=== PATIENT | male | born 1980 ===

== ENCOUNTER 2016-12-11 20:44 | Emergency (ER) | payer OTHER ==
[2016-12-11 20:45] VITALS: BMI 33.0
[2016-12-11 20:54] VITALS: BP 171/90; PULSE 95; RESP 18; TEMP 98.3; O2SAT 98
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
== END 2016-12-11 22:01 | disposition home or self-care (01) ==
LOC: ED 20:44
DX: R21 Rash and other nonspecific skin eruption (principal)

== ENCOUNTER 2016-12-20 12:32 | Emergency (ER) | payer OTHER ==
[2016-12-20 12:32] VITALS: BMI 33.0
[2016-12-20 12:56] VITALS: RESP 18; TEMP 97.7
[2016-12-20 13:05] LABS: ADD MANUAL DIFF? NO
[2016-12-20 13:09] LABS: URINE BILIRUBIN NEGATIVE (NEGATIVE); URINE BLOOD NEGATIVE (NEGATIVE); URINE GLUCOSE (UA) NEGATIVE (NEGATIVE); URINE KETONE NEGATIVE (NEGATIVE); URINE LEUKOCYTE ESTERASE NEGATIVE Leu/uL (NEGATIVE); URINE PROTEIN NEGATIVE mg/dL (<30 mg/dL); URINE UROBILINOGEN 0.2 E.U./dL (<1 E.U./dL)
[2016-12-20 13:10] LABS: URINE APPEARANCE CLEAR (CLEAR)
[2016-12-20 13:12] LABS: BASO # 0.02 K/mm3 (0.0-2.0); BASO % 0.4 % (0.0-3.0); EOS # 0.1 (0.0-0.7); EOS % 1.5 % (1.5-5.0); GRAN # 2.57 (1.4-6.5); GRAN % 48.1 % (50.0-68.0); HEMATOCRIT 39.1 % (42.0-52.0); LYMPH # 2.2 (1.2-3.4); LYMPH % 41.6 % (22.0-35.0); MEAN CELL VOLUME 91.1 fL (80.0-105.0); MEAN CORPUSCULAR HEMOGLOBIN 31.7 pg (25.0-35.0); MEAN CORPUSCULAR HGB CONC 34.8 g/dl (31.0-37.0); MEAN PLATELET VOLUME 10.6 fl (7.0-11.0); MONO # 0.5 (0.1-0.6); MONO % 8.4 % (1.0-6.0); PLATELET COUNT 190 10^3/uL (120.0-450.0); RED CELL DISTRIBUTION WIDTH 12.6 % (11.5-14.5); WHITE BLOOD COUNT 5.3 10^3/ul (4.5-11.0)
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
[2016-12-20 13:24] LABS: ALB/GLOB RATIO 1.1 (1.1-1.8); ALKALINE PHOSPHATASE 77 U/L (38-133); ALT/SGPT 42 U/L (7-56); AST/SGOT 24 U/L (15-59); BILIRUBIN,TOTAL 0.6 mg/dL (0.2-1.3); BLOOD UREA NITROGEN 16 mg/dL (7-21); CALCIUM 9.1 mg/dL (8.4-10.5); CARBON DIOXIDE 27 mmol/L (21-33); CHLORIDE 102 mmol/L (98-107); GFR AFRICAN-AMERICAN > 60; GLUCOSE,RANDOM 77 mg/dL (70-110); POTASSIUM 4.3 mmol/L (3.6-5.0); SODIUM 138 mmol/L (132-148); TOTAL PROTEIN 8.3 g/dL (5.8-8.3)
--- NOTE | 2016-12-20 13:46 | RAD ---
HISTORY: pes eval COMPARISON: Comparison made with chest radiograph 04/30/2016 FINDINGS: LUNGS: Poor inspiration with low lung volumes, mild crowded bronchovascular markings and mild bibasilar atelectasis PLEURA: No significant pleural effusion identified, no pneumothorax apparent. CARDIOVASCULAR: Heart size is borderline enlarged. OSSEOUS STRUCTURES: No significant abnormalities. VISUALIZED UPPER ABDOMEN: Normal. OTHER FINDINGS: None. IMPRESSION: Poor inspiration with low lung volumes, mild crowded bronchovascular markings and mild bibasilar atelectasis.
[2016-12-20 19:42] VITALS: BP 118/78; PULSE 68; O2SAT 100
--- NOTE | 2016-12-20 21:47 | CARD ---
APPROVED REPORT EKG Measurement Heart [id number] <Conclusion> Normal sinus rhythm Nonspecific T wave abnormality Abnormal ECG
== END 2016-12-20 19:10 | disposition home or self-care (01) ==
LOC: ED 12:32
DX: F25.9 Schizoaffective disorder, unspecified (principal); Z87.891 Personal history of nicotine dependence; E11.9 Type 2 diabetes mellitus without complications; I10 Essential (primary) hypertension

== ENCOUNTER 2016-12-22 11:16 | Inpatient (IN) | payer MEDICAID, OTHER ==
[2016-12-22 11:16] VITALS: BMI 33.0
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
[2016-12-22 14:04] LABS: ADD MANUAL DIFF? NO
[2016-12-22 14:11] LABS: BASO # 0.03 K/mm3 (0.0-2.0); BASO % 0.6 % (0.0-3.0); EOS % 0.8 % (1.5-5.0); GRAN # 2.71 (1.4-6.5); GRAN % 54.3 % (50.0-68.0); LYMPH # 1.8 (1.2-3.4); LYMPH % 35.1 % (22.0-35.0); MEAN CELL VOLUME 90.3 fL (80.0-105.0); MEAN CORPUSCULAR HEMOGLOBIN 31.4 pg (25.0-35.0); MEAN CORPUSCULAR HGB CONC 34.7 g/dl (31.0-37.0); MEAN PLATELET VOLUME 10.4 fl (7.0-11.0); MONO # 0.5 (0.1-0.6); MONO % 9.2 % (1.0-6.0); PLATELET COUNT 169 10^3/uL (120.0-450.0); RED CELL DISTRIBUTION WIDTH 12.6 % (11.5-14.5)
[2016-12-22 14:20] LABS: ALB/GLOB RATIO 1.1 (1.1-1.8); ALKALINE PHOSPHATASE 79 U/L (38-133); ALT/SGPT 59 U/L (7-56); AST/SGOT 27 U/L (15-59); BILIRUBIN,TOTAL 0.5 mg/dL (0.2-1.3); BLOOD UREA NITROGEN 13 mg/dL (7-21); CALCIUM 9.1 mg/dL (8.4-10.5); CARBON DIOXIDE 28 mmol/L (21-33); CHLORIDE 103 mmol/L (98-107); GFR AFRICAN-AMERICAN > 60; GLUCOSE,RANDOM 78 mg/dL (70-110); POTASSIUM 4.2 mmol/L (3.6-5.0); SODIUM 141 mmol/L (132-148)
[2016-12-22 14:21] VITALS: O2SAT 96
[2016-12-22 15:05] LABS: URINE BILIRUBIN NEGATIVE (NEGATIVE); URINE BLOOD NEGATIVE (NEGATIVE); URINE GLUCOSE (UA) NEGATIVE (NEGATIVE); URINE KETONE TRACE mg/dL (NEGATIVE); URINE LEUKOCYTE ESTERASE NEGATIVE Leu/uL (NEGATIVE); URINE PROTEIN NEGATIVE mg/dL (<30 mg/dL); URINE UROBILINOGEN 0.2 E.U./dL (<1 E.U./dL)
[2016-12-22 15:07] LABS: URINE APPEARANCE CLEAR (CLEAR); URINE COLOR YELLOW (YELLOW)
--- NOTE | 2016-12-22 17:44 | CARD ---
APPROVED REPORT EKG Measurement Heart [id number] <Conclusion> Normal sinus rhythm Cannot rule out Anterior infarct, age undetermined Abnormal ECG
[2016-12-22] MEDS ORDERED: Alum-Mag Hydrox-Simethicone Susp (30 mL) PO PRN (18:12)
[2016-12-22] MEDS ORDERED: Magnesium Hydroxide Susp 30 ml UD PO PRN (18:14)
[2016-12-23] MEDS: Divalproex 500 mg ER (ONCE DAILY formulation) PO SCH (09:37)
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
[2016-12-23 11:36] LABS: CARBAMAZEPINE 4 ug/mL (4.0-10.0)
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
[2016-12-23 11:51] LABS: VALPROIC ACID 35 ug/mL (50.0-100.0)
[2016-12-24] MEDS: Divalproex 500 mg ER (ONCE DAILY formulation) PO SCH (08:21)
[2016-12-24] MEDS ORDERED: Haloperidol Decanoate 100 mg/ml Inj IM ONE (09:03)
[2016-12-24] MEDS: Multivitamin Therapeutic Tab PO SCH (12:57)
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
[2016-12-25] MEDS: Multivitamin Therapeutic Tab PO SCH (09:13)
[2016-12-25] MEDS: Divalproex 500 mg ER (ONCE DAILY formulation) PO SCH (09:14)
--- NOTE | 2016-12-25 09:29 | PCM.PYCHPN ---
Psychiatric Progress Note - Psychiatric Progress Note Patient seen today, length of contact: 25 minutes Patient Chief Complaint: "depressed" Problems Identified/Issues Discussed: I reviewed recent notes and met with patient at bedside. He is better groomed, calm and cooperative. Patient is oriented to month, year and location. He is superficially oriented to circumstances. He recalls me from our admission interview. Focus is fair and responses are relevant to questioning. He reports that he is doing "okay". Continues to deny SI or HI including any homicidal thoughts towards his mother or any of his neighbors. Presently patient denies hallucinations though he is oddly related and smiles brightly almost inappropriately. He doesn't appear to be responding to internal stimuli during our interview. Insight and judgment are still poor and impulse control is improved. There were no major behavioral issues overnight. Diagnostic Results: Schizoaffective Disorder Cerebral Palsy Intellectual Disability Medication Change: No Medical Record Reviewed: Yes (notes, vitals, labs, reports) Mental Status Examination - Cognitive Function Orientation: Person, Place Memory: Intact Attention: Poor Concentration: Poor Association: Loose Fund of Knowledge: Poor - Mood Mood: Euphoric - Affect Affect: Broad (expanded) - Speech Speech: Soft - Formal Thought Process Formal Thought Process: Loosening of associations - Suicidal Ideation Suicidal Ideation: No - Homicidal Ideation Homicidal Ideation: No Goal/Treatment Plan - Goal/Treatment Plan Need for Continued Stay: Remain at risks for inpatient hospitalization, Severe depression anxiety, Discharge may exacerbated symptoms, Severe functional impairment Progress Toward Problem(s) and Goals/Treatment Plan: * group, milieu and supportive tx * No new labs overnight * Vitals reviewed and noted below: Selected Entries 12/23/16 12/23/16 12/24/16 06:56 16:47 06:33 Temperature 97.8 F 97.8 F Pulse Rate 66 85 65 Respiratory 20 20 Rate Blood Pressure 113/70 142/92 H 118/67 12/24/16 16:37 Temperature Pulse Rate 74 Respiratory Rate Blood Pressure 154/101 H Estimated Date of D/C: 12/31/16 (onitor closely)
[2016-12-26] MEDS: Multivitamin Therapeutic Tab PO SCH (08:39)
[2016-12-26] MEDS: Divalproex 500 mg ER (ONCE DAILY formulation) PO SCH (08:39)
--- NOTE | 2016-12-26 08:51 | PCM.PYCHPN ---
Psychiatric Progress Note - Psychiatric Progress Note Patient seen today, length of contact: 25 minutes Patient Chief Complaint: "better" Problems Identified/Issues Discussed: I reviewed recent notes and met with patient at bedside. He is better groomed , calm and cooperative. Patient is oriented to month, year and location. He is superficially oriented to circumstances.. Focus is fair and responses are relevant to questioning. He reports that he is doing "okay" and feels he is doing better. Continues to deny and SI. Also denies HI including any thoughts to harm others including his mother or any of his neighbors. Presently patient denies hallucinations though he is oddly related and smiles brightly, almost inappropriately. He doesn't appear to be responding to internal stimuli during our interview. Insight and judgment are still poor but improving. Impulse control is improved. There were no major behavioral issues over the weekend. Diagnostic Results: Schizoaffective Disorder Cerebral Palsy Intellectual Disability Medication Change: No Medical Record Reviewed: Yes (notes, vitals, labs, reports) Mental Status Examination - Cognitive Function Orientation: Person, Place Memory: Intact Attention: Poor Concentration: Poor Association: Loose Fund of Knowledge: Poor - Mood Mood: Neutral - Affect Affect: Broad (expanded), Blunted - Speech Speech: Soft - Formal Thought Process Formal Thought Process: Loosening of associations - Suicidal Ideation Suicidal Ideation: No - Homicidal Ideation Homicidal Ideation: No Goal/Treatment Plan - Goal/Treatment Plan Need for Continued Stay: Remain at risks for inpatient hospitalization, Severe depression anxiety, Discharge may exacerbated symptoms, Severe functional impairment Progress Toward Problem(s) and Goals/Treatment Plan: * group, milieu and supportive tx * No new labs overnight * Vitals reviewed and noted below: Selected Entries 12/25/16 12/25/16 06:50 17:59 Temperature 97.8 F Pulse Rate 68 101 H Respiratory 18 Rate Blood Pressure 128/62 130/82 Estimated Date of D/C: 12/31/16 (onitor closely)
[2016-12-27 07:33] VITALS: RESP 20
[2016-12-27] MEDS: Divalproex 500 mg ER (ONCE DAILY formulation) PO SCH (08:30)
[2016-12-27] MEDS: Multivitamin Therapeutic Tab PO SCH (08:31)
[2016-12-27] MEDS ORDERED: Ergocalciferol 50,000 Intl Units Cap PO SCH (10:00)
--- NOTE | 2016-12-27 16:42 | PCM.PYCHPN ---
Psychiatric Progress Note - Psychiatric Progress Note Patient seen today, length of contact: 30min Patient Chief Complaint: "I am alright, but my mother is antagonizing me..." Problems Identified/Issues Discussed: Suicide/ homicide prevention, past psychiatric h/o, current psychiatric symptoms , medical problems, risk/benefits and alternatives of medications, medications compliance, coping strategies, substance abuse h/o, relapse prevention, importance of follow up with psychiatrist and therapist, discharge plan. Medical Problems: seizures last time was in 2010 Cerebral palsy Diagnostic Results: 12/22/16 14:03 12/22/16 14:03 Lab Results 12/23/16 07:30: Valproic Acid 35 L, Carbamazepine 4 12/23/16 06:30: Fasting Glucose 82, RPR Nonreactive 12/22/16 14:46: Urine Color Yellow, Urine Appearance Clear, Urine pH 7.0, Ur Specific [place] 1.020, Urine Protein Negative, Urine Glucose (UA) Negative, Urine Ketones Trace H, Urine Blood Negative, Urine Nitrate Negative, Urine Bilirubin Negative, Urine Urobilinogen 0.2, Ur Leukocyte Esterase Negative, Urine Opiates Screen Negative, Urine Methadone Screen Negative, Ur Barbiturates Screen Negative, Ur Phencyclidine Scrn Negative, Ur Amphetamines Screen Negative , U Benzodiazepines Scrn Negative, U Oth Cocaine Metabols Negative, U Cannabinoids Screen Negative 12/22/16 14:03: WBC 5.0, RBC 4.21, Hgb 13.2 L, Hct 38.0 L, MCV 90.3, MCH 31.4, MCHC 34.7, RDW 12.6, Plt Count 169, MPV 10.4, Gran % 54.3, Lymph % (Auto) 35.1 H , [place] % (Auto) 9.2 H, Eos % (Auto) 0.8 L, Baso % (Auto) 0.6, Gran # 2.71, Lymph # 1.8, [place] # 0.5, Eos # 0.0, Baso # 0.03, Sodium 141, Potassium 4.2, Chloride 103, Carbon Dioxide 28, Anion Gap 14, BUN 13, Creatinine 0.9, Est GFR ( Amer) > 60, Est GFR (Non-Af Amer) > 60, Random Glucose 78, Calcium 9.1, Total Bilirubin 0.5, AST 27, ALT 59 H, Alkaline Phosphatase 79, Total Creatine Kinase 62, Total Protein 8.0, Albumin 4.1, Globulin 3.9, Albumin/Globulin Ratio 1.1, Lipase 65, Alcohol, Quantitative < 10 Vital Signs Temp Pulse Pulse Resp BP Pulse Ox 12/24/16 16:37 74 154/101 H 12/24/16 06:33 97.8 F 65 20 118/67 12/23/16 16:47 85 142/92 H 12/23/16 06:56 97.8 F 66 20 113/70 12/22/16 16:53 87 20 12/22/16 14:20 86 18 110/69 96 12/22/16 12:00 98 F 90 16 105/80 95 Temp Pulse Resp BP Pulse Ox 97.5 F L 65 20 112/64 96 12/27/16 07:32 12/27/16 07:32 12/27/16 07:32 12/27/16 07:32 12/22/16 14:20 DSM 5 Symptoms Update: Patient is a 35 yo male with history of Schizoaffective Disorder, Cerebral Palsy, Intellectual Disability, multiple admissions-most recently discharged from [facility] [place], historically poor adherence with medications, who was BIBA to the ER for evaluation after his mother called 911 saying patient was suicidal. Apparently patient had an argument with his mother and verbalized that he was paranoid and wanted to hurt himself. ER report indicates that patient reported walking to the [facility] for evaluation but by the time he arrived, [place] Police and EMS were there to pick him up. Patient also told ER clinician that he wanted to "stab himself in the eye or the heart". He told nursing on the psychiatric floor that he was depressed and hearing voices. patient was seen and examined in his room today, reported to be somewhat "Okay, but upset", denied thoughts of harming self or others, feeling "little anxious" . willing to increase celexa. no behavioral issues, pt is compliant with meds, pt has impulses unpredictable, pt at times could be angry, short temper. as per staff pt is compliant with meds, but pt has childlike demeanor, affect is bright at times inappropriate. Impression: DSM 5 Diagnosis: Schizoaffective Disorder Cerebral Palsy Intellectual Disability Medication Change: Yes (celexa increased) Medical Record Reviewed: Yes (notes, vitals, labs, reports) Consults ordered or reviewed: medical consult appreciated Mental Status Examination - Cognitive Function Orientation: Person, Place Memory: Intact Attention: Poor (some improvement) Concentration: Poor (some improvement) Association: Loose Fund of Knowledge: Poor - Mood Mood: Depressed, Anxious - Affect Affect: Broad (expanded) - Speech Speech: Soft - Formal Thought Process Formal Thought Process: Loosening of associations - Suicidal Ideation Suicidal Ideation: No - Homicidal Ideation Homicidal Ideation: No Goal/Treatment Plan - Goal/Treatment Plan Need for Continued Stay: Remain at risks for inpatient hospitalization, Severe depression anxiety, Discharge may exacerbated symptoms, Severe functional impairment Progress Toward Problem(s) and Goals/Treatment Plan: milieu, structure, supportive therapy Depakote will be continued 1000 mg at the nighttime for seizure prevention and most stabilization Haldol Decanoate 200 mg every 2 weeks will be resumed today, 200 mg IM was given to the 12/24/2016 Cogentin 1 mg twice a day for EPS symptoms Tegretol 400 mg daily for seizures correction to my previous note pt is on Celexa, (not Lexapro ) will be increased to 30 mg daily for depressive symptoms and anxiety We'll follow up on Depakote level next week Medical consult appreciated Family involvement Estimated Date of D/C: 12/31/16 (onitor closely)
[2016-12-28] MEDS: Divalproex 500 mg ER (ONCE DAILY formulation) PO SCH (08:45)
[2016-12-28] MEDS: Multivitamin Therapeutic Tab PO SCH (08:46)
[2016-12-28] MEDS: Bacitracin Ointment 30 GM TUBE TOP SCH ×2 (13:34→18:07)
--- NOTE | 2016-12-28 17:07 | PCM.PYCHPN ---
Psychiatric Progress Note - Psychiatric Progress Note Patient seen today, length of contact: 30min Patient Chief Complaint: "I alright" Problems Identified/Issues Discussed: Suicide/ homicide prevention, past psychiatric h/o, current psychiatric symptoms , medical problems, risk/benefits and alternatives of medications, medications compliance, coping strategies, substance abuse h/o, relapse prevention, importance of follow up with psychiatrist and therapist, discharge plan. Medical Problems: seizures last time was in 2010 Cerebral palsy Diagnostic Results: 12/22/16 14:03 12/22/16 14:03 Lab Results 12/23/16 07:30: Valproic Acid 35 L, Carbamazepine 4 12/23/16 06:30: Fasting Glucose 82, RPR Nonreactive 12/22/16 14:46: Urine Color Yellow, Urine Appearance Clear, Urine pH 7.0, Ur Specific [place] 1.020, Urine Protein Negative, Urine Glucose (UA) Negative, Urine Ketones Trace H, Urine Blood Negative, Urine Nitrate Negative, Urine Bilirubin Negative, Urine Urobilinogen 0.2, Ur Leukocyte Esterase Negative, Urine Opiates Screen Negative, Urine Methadone Screen Negative, Ur Barbiturates Screen Negative, Ur Phencyclidine Scrn Negative, Ur Amphetamines Screen Negative , U Benzodiazepines Scrn Negative, U Oth Cocaine Metabols Negative, U Cannabinoids Screen Negative 12/22/16 14:03: WBC 5.0, RBC 4.21, Hgb 13.2 L, Hct 38.0 L, MCV 90.3, MCH 31.4, MCHC 34.7, RDW 12.6, Plt Count 169, MPV 10.4, Gran % 54.3, Lymph % (Auto) 35.1 H , [place] % (Auto) 9.2 H, Eos % (Auto) 0.8 L, Baso % (Auto) 0.6, Gran # 2.71, Lymph # 1.8, [place] # 0.5, Eos # 0.0, Baso # 0.03, Sodium 141, Potassium 4.2, Chloride 103, Carbon Dioxide 28, Anion Gap 14, BUN 13, Creatinine 0.9, Est GFR ( Amer) > 60, Est GFR (Non-Af Amer) > 60, Random Glucose 78, Calcium 9.1, Total Bilirubin 0.5, AST 27, ALT 59 H, Alkaline Phosphatase 79, Total Creatine Kinase 62, Total Protein 8.0, Albumin 4.1, Globulin 3.9, Albumin/Globulin Ratio 1.1, Lipase 65, Alcohol, Quantitative < 10 Vital Signs Temp Pulse Pulse Resp BP Pulse Ox 12/24/16 16:37 74 154/101 H 12/24/16 06:33 97.8 F 65 20 118/67 12/23/16 16:47 85 142/92 H 12/23/16 06:56 97.8 F 66 20 113/70 12/22/16 16:53 87 20 12/22/16 14:20 86 18 110/69 96 12/22/16 12:00 98 F 90 16 105/80 95 Temp Pulse Resp BP Pulse Ox 97.5 F L 65 20 112/64 96 12/27/16 07:32 12/27/16 07:32 12/27/16 07:32 12/27/16 07:32 12/22/16 14:20 DSM 5 Symptoms Update: Patient is a 35 yo male with history of Schizoaffective Disorder, Cerebral Palsy, Intellectual Disability, multiple admissions-most recently discharged from [facility] 05/07/16, historically poor adherence with medications, who was BIBA to the ER for evaluation after his mother called 911 saying patient was suicidal. Apparently patient had an argument with his mother and verbalized that he was paranoid and wanted to hurt himself. ER report indicates that patient reported walking to the [facility] for evaluation but by the time he arrived, [place] Police and EMS were there to pick him up. Patient also told ER clinician that he wanted to "stab himself in the eye or the heart". He told nursing on the psychiatric floor that he was depressed and hearing voices. patient was seen and examined tx team room today, reported to be somewhat "Okay , but upset", denied thoughts of harming self or others, pt has resting tremor in his right UE, seems to be unaware of that, pt also has some rigidity over his UE, will suggest decrease Haldol Dec. no behavioral issues, pt is compliant with meds, pt has impulses unpredictable, pt at times could be angry, short temper. as per staff pt is compliant with meds, but pt has childlike demeanor, affect is bright at times inappropriate. Impression: DSM 5 Diagnosis: Schizoaffective Disorder Cerebral Palsy Intellectual Disability Medication Change: Yes (Cogentin increased) Medical Record Reviewed: Yes (notes, vitals, labs, reports) Consults ordered or reviewed: medical consult appreciated Mental Status Examination - Cognitive Function Orientation: Person, Place Memory: Intact Attention: Poor (some improvement) Concentration: Poor (some improvement) Association: Loose Fund of Knowledge: Poor - Mood Mood: Depressed, Anxious - Affect Affect: Broad (expanded) - Speech Speech: Soft - Formal Thought Process Formal Thought Process: Loosening of associations - Suicidal Ideation Suicidal Ideation: No - Homicidal Ideation Homicidal Ideation: No Goal/Treatment Plan - Goal/Treatment Plan Need for Continued Stay: Remain at risks for inpatient hospitalization, Severe depression anxiety, Discharge may exacerbated symptoms, Severe functional impairment Progress Toward Problem(s) and Goals/Treatment Plan: milieu, structure, supportive therapy Depakote will be continued 1000 mg at the nighttime for seizure prevention and most stabilization Haldol Decanoate 200 mg every 2 weeks we'll consider to decrease the dose Cogentin will be increased to 1.5mg twice a day for EPS symptoms Tegretol 400 mg daily for seizures [id number] mg daily for depressive symptoms and anxiety We'll follow up on Depakote level next week Medical consult appreciated Family involvement Estimated Date of D/C: 12/31/16 (onitor closely)
[2016-12-29] MEDS: Divalproex 500 mg ER (ONCE DAILY formulation) PO SCH (09:06)
[2016-12-29] MEDS: Multivitamin Therapeutic Tab PO SCH (09:07)
[2016-12-29] MEDS: Bacitracin Ointment 30 GM TUBE TOP SCH ×3 (09:25→23:00)
--- NOTE | 2016-12-29 16:26 | PCM.PYCHPN ---
Psychiatric Progress Note - Psychiatric Progress Note Patient seen today, length of contact: 30min Patient Chief Complaint: "I am bored" Problems Identified/Issues Discussed: Suicide/ homicide prevention, past psychiatric h/o, current psychiatric symptoms , medical problems, risk/benefits and alternatives of medications, medications compliance, coping strategies, substance abuse h/o, relapse prevention, importance of follow up with psychiatrist and therapist, discharge plan. Medical Problems: seizures last time was in 2010 Cerebral palsy Diagnostic Results: 12/22/16 14:03 12/22/16 14:03 Lab Results 12/23/16 07:30: Valproic Acid 35 L, Carbamazepine 4 12/23/16 06:30: Fasting Glucose 82, RPR Nonreactive 12/22/16 14:46: Urine Color Yellow, Urine Appearance Clear, Urine pH 7.0, Ur Specific [place] 1.020, Urine Protein Negative, Urine Glucose (UA) Negative, Urine Ketones Trace H, Urine Blood Negative, Urine Nitrate Negative, Urine Bilirubin Negative, Urine Urobilinogen 0.2, Ur Leukocyte Esterase Negative, Urine Opiates Screen Negative, Urine Methadone Screen Negative, Ur Barbiturates Screen Negative, Ur Phencyclidine Scrn Negative, Ur Amphetamines Screen Negative , U Benzodiazepines Scrn Negative, U Oth Cocaine Metabols Negative, U Cannabinoids Screen Negative 12/22/16 14:03: WBC 5.0, RBC 4.21, Hgb 13.2 L, Hct 38.0 L, MCV 90.3, MCH 31.4, MCHC 34.7, RDW 12.6, Plt Count 169, MPV 10.4, Gran % 54.3, Lymph % (Auto) 35.1 H , [place] % (Auto) 9.2 H, Eos % (Auto) 0.8 L, Baso % (Auto) 0.6, Gran # 2.71, Lymph # 1.8, [place] # 0.5, Eos # 0.0, Baso # 0.03, Sodium 141, Potassium 4.2, Chloride 103, Carbon Dioxide 28, Anion Gap 14, BUN 13, Creatinine 0.9, Est GFR ( Amer) > 60, Est GFR (Non-Af Amer) > 60, Random Glucose 78, Calcium 9.1, Total Bilirubin 0.5, AST 27, ALT 59 H, Alkaline Phosphatase 79, Total Creatine Kinase 62, Total Protein 8.0, Albumin 4.1, Globulin 3.9, Albumin/Globulin Ratio 1.1, Lipase 65, Alcohol, Quantitative < 10 Vital Signs Temp Pulse Pulse Resp BP Pulse Ox 12/24/16 16:37 74 154/101 H 12/24/16 06:33 97.8 F 65 20 118/67 12/23/16 16:47 85 142/92 H 12/23/16 06:56 97.8 F 66 20 113/70 12/22/16 16:53 87 20 12/22/16 14:20 86 18 110/69 96 12/22/16 12:00 98 F 90 16 105/80 95 Temp Pulse Resp BP Pulse Ox 97.5 F L 65 20 112/64 96 12/27/16 07:32 12/27/16 07:32 12/27/16 07:32 12/27/16 07:32 12/22/16 14:20 Temp Pulse Resp BP Pulse Ox 98.0 F 66 20 115/95 H 96 12/29/16 07:34 12/29/16 07:34 12/29/16 07:34 12/29/16 07:34 12/22/16 14:20 DSM 5 Symptoms Update: Patient is a 35 yo male with history of Schizoaffective Disorder, Cerebral Palsy, Intellectual Disability, multiple admissions-most recently discharged from [facility] [place] 05/07/16, historically poor adherence with medications, who was BIBA to the ER for evaluation after his mother called 911 saying patient was suicidal. Apparently patient had an argument with his mother and verbalized that he was paranoid and wanted to hurt himself. ER report indicates that patient reported walking to the [facility] for evaluation but by the time he arrived, [place] Police and EMS were there to pick him up. Patient also told ER clinician that he wanted to "stab himself in the eye or the heart". He told nursing on the psychiatric floor that he was depressed and hearing voices. patient was seen and examined tx team room today, reported to be somewhat "Okay , but I am bored, I am planning to move out of [place]", pt has no interests, when was asked what he likes to do, pt said "I like swimming , but for the past 4 years I did not do so..." denied thoughts of harming self or others, pt has resting tremor in his right UE, seems to be unaware of that, pt also has some rigidity over his UE, will suggest decrease Haldol Dec to 200mg monthly but not [id number]. no behavioral issues, pt is compliant with meds, pt has impulses unpredictable, pt at times could be angry, short temper. as per staff pt is compliant with meds, but pt has childlike demeanor, affect is bright at times inappropriate. Impression: DSM 5 Diagnosis: Schizoaffective Disorder Cerebral Palsy Intellectual Disability Medication Change: No (Cogentin increased yesterday) Medical Record Reviewed: Yes (notes, vitals, labs, reports) Consults ordered or reviewed: medical consult appreciated Mental Status Examination - Cognitive Function Orientation: Person, Place Memory: Intact Attention: Poor (some improvement) Concentration: Poor (some improvement) Association: Loose Fund of Knowledge: Poor - Mood Mood: Depressed (better), Anxious (better) - Affect Affect: Broad (expanded) - Speech Speech: Soft - Formal Thought Process Formal Thought Process: Loosening of associations - Suicidal Ideation Suicidal Ideation: No - Homicidal Ideation Homicidal Ideation: No Goal/Treatment Plan - Goal/Treatment Plan Need for Continued Stay: Remain at risks for inpatient hospitalization, Severe depression anxiety, Discharge may exacerbated symptoms, Severe functional impairment Progress Toward Problem(s) and Goals/Treatment Plan: milieu, structure, supportive therapy Depakote will be continued 1000 mg at the nighttime for seizure prevention and most stabilization will f/u on depakote level 12/30/16 Haldol Decanoate 200 mg will be decreased to [id number] Cogentin will be increased to 1.5mg twice a day for EPS symptoms Tegretol 400 mg daily for seizures [id number] mg daily for depressive symptoms and anxiety Medical consult appreciated Family involvement Estimated Date of D/C: 12/31/16 (onitor closely)
[2016-12-30] MEDS: Divalproex 500 mg ER (ONCE DAILY formulation) PO SCH (08:33)
[2016-12-30] MEDS: Multivitamin Therapeutic Tab PO SCH (08:33)
[2016-12-30] MEDS: Bacitracin Ointment 30 GM TUBE TOP SCH ×3 (09:33→17:38)
--- NOTE | 2016-12-30 13:53 | PCM.PYCHPN ---
Psychiatric Progress Note - Psychiatric Progress Note Patient seen today, length of contact: 30min Patient Chief Complaint: "I am fine, I am learning not to react on small things" Problems Identified/Issues Discussed: Suicide/ homicide prevention, past psychiatric h/o, current psychiatric symptoms , medical problems, risk/benefits and alternatives of medications, medications compliance, coping strategies, substance abuse h/o, relapse prevention, importance of follow up with psychiatrist and therapist, discharge plan. Medical Problems: seizures last time was in 2010 Cerebral palsy Diagnostic Results: 12/22/16 14:03 12/22/16 14:03 Lab Results 12/23/16 07:30: Valproic Acid 35 L, Carbamazepine 4 12/23/16 06:30: Fasting Glucose 82, RPR Nonreactive 12/22/16 14:46: Urine Color Yellow, Urine Appearance Clear, Urine pH 7.0, Ur Specific [place] 1.020, Urine Protein Negative, Urine Glucose (UA) Negative, Urine Ketones Trace H, Urine Blood Negative, Urine Nitrate Negative, Urine Bilirubin Negative, Urine Urobilinogen 0.2, Ur Leukocyte Esterase Negative, Urine Opiates Screen Negative, Urine Methadone Screen Negative, Ur Barbiturates Screen Negative, Ur Phencyclidine Scrn Negative, Ur Amphetamines Screen Negative , U Benzodiazepines Scrn Negative, U Oth Cocaine Metabols Negative, U Cannabinoids Screen Negative 12/22/16 14:03: WBC 5.0, RBC 4.21, Hgb 13.2 L, Hct 38.0 L, MCV 90.3, MCH 31.4, MCHC 34.7, RDW 12.6, Plt Count 169, MPV 10.4, Gran % 54.3, Lymph % (Auto) 35.1 H , [place] % (Auto) 9.2 H, Eos % (Auto) 0.8 L, Baso % (Auto) 0.6, Gran # 2.71, Lymph # 1.8, [place] # 0.5, Eos # 0.0, Baso # 0.03, Sodium 141, Potassium 4.2, Chloride 103, Carbon Dioxide 28, Anion Gap 14, BUN 13, Creatinine 0.9, Est GFR ( Amer) > 60, Est GFR (Non-Af Amer) > 60, Random Glucose 78, Calcium 9.1, Total Bilirubin 0.5, AST 27, ALT 59 H, Alkaline Phosphatase 79, Total Creatine Kinase 62, Total Protein 8.0, Albumin 4.1, Globulin 3.9, Albumin/Globulin Ratio 1.1, Lipase 65, Alcohol, Quantitative < 10 Vital Signs Temp Pulse Pulse Resp BP Pulse Ox 12/24/16 16:37 74 154/101 H 12/24/16 06:33 97.8 F 65 20 118/67 12/23/16 16:47 85 142/92 H 12/23/16 06:56 97.8 F 66 20 113/70 12/22/16 16:53 87 20 12/22/16 14:20 86 18 110/69 96 12/22/16 12:00 98 F 90 16 105/80 95 Temp Pulse Resp BP Pulse Ox 97.5 F L 65 20 112/64 96 12/27/16 07:32 12/27/16 07:32 12/27/16 07:32 12/27/16 07:32 12/22/16 14:20 Temp Pulse Resp BP Pulse Ox 98.0 F 66 20 115/95 H 96 12/29/16 07:34 12/29/16 07:34 12/29/16 07:34 12/29/16 07:34 12/22/16 14:20 Temp Pulse Resp BP Pulse Ox 97.8 F 62 20 109/55 L 96 12/30/16 06:36 12/30/16 06:36 12/30/16 06:36 12/30/16 06:36 12/22/16 14:20 Abnormal Lab Results 12/30/16 07:00 Valproic Acid 45 L DSM 5 Symptoms Update: Patient is a 35 yo male with history of Schizoaffective Disorder, Cerebral Palsy, Intellectual Disability, multiple admissions-most recently [place] [facility] [place], historically poor adherence with medications, who was BIBA to the ER for evaluation after his mother called 911 saying patient was suicidal. Apparently patient had an argument with his mother and verbalized that he was paranoid and wanted to hurt himself. ER report indicates that patient [facility] but by the time he arrived, [place] Police and EMS were there to pick him up. Patient also told ER clinician that he wanted to "stab himself in the eye or the heart". He told nursing on the psychiatric floor that he was depressed and hearing voices. patient was seen and examined pt is childlike demeanor, pt deemed improving, willing to be d/c tomorrow, pt said "I need to work on not say things what I didn't mean, for example I want to kill myself". no behavioral issues, pt is compliant with meds, impulses are better controlled. as per staff pt is compliant with meds, but pt has childlike demeanor, affect is bright at times inappropriate. Impression: DSM 5 Diagnosis: Schizoaffective Disorder Cerebral Palsy Medication Change: No (Cogentin increased yesterday) Medical Record Reviewed: Yes (notes, vitals, labs, reports) Consults ordered or reviewed: medical consult appreciated Mental Status Examination - Cognitive Function Orientation: Person, Place Memory: Intact Attention: Poor (some improvement) Concentration: Poor (some improvement) Association: Loose Fund of Knowledge: Poor - Mood Mood: Depressed (better), Anxious (better) - Affect Affect: Broad (expanded) - Speech Speech: Soft - Formal Thought Process Formal Thought Process: Loosening of associations - Suicidal Ideation Suicidal Ideation: No - Homicidal Ideation Homicidal Ideation: No Goal/Treatment Plan - Goal/Treatment Plan Need for Continued Stay: Remain at risks for inpatient hospitalization, Severe depression anxiety, Discharge may exacerbated symptoms, Severe functional impairment Progress Toward Problem(s) and Goals/Treatment Plan: milieu, structure, supportive therapy Depakote will be continued 1000 mg at the nighttime for seizure prevention and most stabilization valproic acid 45 12/30/16 Haldol Decanoate 200 mg will be decreased to [id number] Cogentin will be increased to 1.5mg twice a day for EPS symptoms Tegretol 400 mg daily for seizures [id number] mg daily for depressive symptoms and anxiety Medical consult appreciated Family involvement Estimated Date of D/C: 12/31/16 (onitor closely)
[2016-12-31 07:19] VITALS: BP 92/42; PULSE 64; TEMP 98.5
[2016-12-31] MEDS: Bacitracin Ointment 30 GM TUBE TOP SCH ×2 (09:55→13:04)
[2016-12-31] MEDS: Divalproex 500 mg ER (ONCE DAILY formulation) PO SCH (09:56)
[2016-12-31] MEDS: Multivitamin Therapeutic Tab PO SCH (09:57)
--- NOTE | 2016-12-31 19:01 | PCM.PYCHDC ---
Mental Status Examination - Mental Status Examination Orientation: Person, Place, Situation, Time Memory: Intact Mood: Neutral Affect: Broad (mood congruent) Speech: Appropriate Attention: WNL Concentration: WNL Association: WNL Fund of Knowledge: WNL Formal Thought Process: No Impairment Description of patient's judgement and insight: Pt has improved insight into mental and medical illness, pt was compliant with medications and unit rules and regulations, pt was going to groups, was calm, cooperative, socially appropriate, no behavioral incidents, no agitation, no aggression. Psychotic Thoughts and Behaviors: Pt denied v/a/t hallucinations, denied paranoid ideations, pt does not appear to be psychotic, and thought process is goal directed. Suicidal Ideation: No Current Homicidal Ideation?: No Plan: pt adamantly denied thoughts of harming self or others denied intent or plan. Discharge Summary - Discharge Note Reason for Hospitalization: depression/possible suicidal ideation see admission note Psychiatric History (includes Medical, Family, Personal Hx): multiple psych admissions Laboratory Data: 12/22/16 14:03 12/22/16 14:03 Lab Results 12/30/16 07:00: Valproic Acid 45 L 12/23/16 07:30: Valproic Acid 35 L, Carbamazepine 4 12/23/16 06:30: Fasting Glucose 82 12/23/16 06:30: RPR Nonreactive 12/22/16 14:46: Urine Opiates Screen Negative, Urine Methadone Screen Negative, Ur Barbiturates Screen Negative, Ur Phencyclidine Scrn Negative, Ur Amphetamines Screen Negative, U Benzodiazepines Scrn Negative, U Oth Cocaine Metabols Negative, U Cannabinoids Screen Negative 12/22/16 14:46: Urine Color Yellow, Urine Appearance Clear, Urine pH 7.0, Ur Specific [place] 1.020, Urine Protein Negative, Urine Glucose (UA) Negative, Urine Ketones Trace H, Urine Blood Negative, Urine Nitrate Negative, Urine Bilirubin Negative, Urine Urobilinogen 0.2, Ur Leukocyte Esterase Negative 12/22/16 14:03: Lipase 65 12/22/16 14:03: Alcohol, Quantitative < 10 12/22/16 14:03: Sodium 141, Potassium 4.2, Chloride 103, Carbon Dioxide 28, Anion Gap 14, BUN 13, Creatinine 0.9, Est GFR ( Amer) > 60, Est GFR (Non- Af Amer) > 60, Random Glucose 78, Calcium 9.1, Total Bilirubin 0.5, AST 27, ALT 59 H, Alkaline Phosphatase 79, Total Creatine Kinase 62, Total Protein 8.0, Albumin 4.1, Globulin 3.9, Albumin/Globulin Ratio 1.1 12/22/16 14:03: WBC 5.0, RBC 4.21, Hgb 13.2 L, Hct 38.0 L, MCV 90.3, MCH 31.4, MCHC 34.7, RDW 12.6, Plt Count 169, MPV 10.4, Gran % 54.3, Lymph % (Auto) 35.1 H , [place] % (Auto) 9.2 H, Eos % (Auto) 0.8 L, Baso % (Auto) 0.6, Gran # 2.71, Lymph # 1.8, [place] # 0.5, Eos # 0.0, Baso # 0.03 Vital Signs Temp Pulse Pulse Resp BP Pulse Ox 12/31/16 07:18 98.5 F 64 20 92/42 L 12/30/16 16:00 74 116/56 L 12/30/16 06:36 97.8 F 62 20 109/55 L 12/29/16 16:00 81 102/75 12/29/16 07:34 98.0 F 66 20 115/95 H 12/28/16 16:12 73 156/97 H 12/28/16 06:00 97.5 F L 65 20 114/59 L 12/27/16 16:00 78 119/77 12/27/16 07:32 97.5 F L 65 20 112/64 12/26/16 18:18 68 90/60 L 12/26/16 06:30 98.6 F 58 L 19 113/65 12/25/16 17:59 101 H 130/82 12/25/16 06:50 97.8 F 68 18 128/62 12/25/16 06:13 74 154/101 H 12/24/16 16:37 74 154/101 H 12/24/16 06:33 97.8 F 65 20 118/67 12/23/16 16:47 85 142/92 H 12/23/16 06:56 97.8 F 66 20 113/70 12/22/16 16:53 87 20 12/22/16 14:20 86 18 110/69 96 04/19/17 12:00 98 F 90 16 105/80 95 Consultations:: List each consultation separately and include: 1. Reason for request. 2. Findings. 3. Follow-up Consultations: medical consult appreciated see note for more detailed information Summary of Hospital Course include:: 1. Description of specific treatment plan utilized for patients during their course of treatmen. 2. Summarize the time- course for resolution of acute symptoms and/or regressed behaviors. 3. Describe issues identified and worked on during hospitalization. 4. Describe medication utilized. 5. Describe medical problems identified and treated. 6. Reassessment of suicide risk Summary of Hospital Course: Patient is a 35 yo male with history of Schizoaffective Disorder, Cerebral Palsy, Intellectual Disability, multiple admissions[place] [facility] [place], historically poor adherence with medications, who was BIBA to the ER for evaluation after his mother called 911 saying patient was suicidal. Apparently patient had an argument with his mother and verbalized that he was paranoid and wanted to hurt himself. ER report indicates that patient reported walking to the [facility] for evaluation but by the time he arrived, [place] Police and EMS were there to pick him up. Patient also told ER clinician that he wanted to "stab himself in the eye or the heart". He told nursing on the psychiatric floor that he was depressed and hearing voices. patient was stabilized on the following medications: Depakote was continued 1000 mg at the nighttime for seizure prevention and most stabilization valproic acid 45 12/30/16 Haldol Decanoate 200 mg will be decreased to [id number] last dose was on 12/24/2016 next dose will be on December 222016 Dose of Haldol decanoate was decreased because patient seems to be restless, constantly moving his lower extremities, also has resting tremor in right arm. But EPS improved significantly. Cogentin was increased to 1.5mg twice a day for EPS symptoms Tegretol 400 mg daily for seizures [id number] mg daily for depressive symptoms and anxiety Over the course of this hospitalization pt was attending groups, pt also had medication management, had therapeutic milieu. Overall pt improved significantly, pt's affect became brighter, pt was less depressed, has realistic future oriented plans, pt also does not appear to be psychotic, or anxious, pt was socially appropriate, no behavioral issues, pts insight improved as well and soon pt deemed to be ready for discharge. At the time of the discharge pt denied been depressed, denied thoughts of harming self or others, denied psychotic symptoms, and pt does not appeared to be psychotic, denied been anxious, was considered to pose no threat to self or others, will be following up at [facility], information about follow up appointment, time and address provided to the pt, it is patient responsibility to follow up with outpatient clinic, PMD as well as specialists (see SW note for more detailed information). In case pt will need to obtain results of studies pending at discharge pt was provided with contact information of Psychiatric Inpatient unit [phone] as well as Medical Record Department [phone]. patient was provided with all of his prescriptions, please see medication reconciliation form. medical residency and contacted patient mother patient mother was feeling comfortable to accept patient back, at the same time patient mother wants patient to start living in assisted, patient mother was educated to initiate this process as outpatient. pt was picked up by ICMS worker Pt was educated about safety plan in case of worsening of symptoms or in case of suicidal or homicidal ideation call 911 or go to the nearest ER, also was educated to take meds as prescribed and stay away from drugs, pt verbalized understanding. - Diagnosis (1) Schizoaffective disorder, bipolar type Status: Acute (2) Intellectual disability due to developmental disorder, unspecified Status: Chronic - Final Diagnosis (DSM 5) Condition upon Discharge: FAIR Disposition: HOME/ ROUTINE Follow-up Treatment Plan: At the time of the discharge pt denied been depressed, denied thoughts of harming self or others, denied psychotic symptoms, and pt does not appeared to be psychotic, denied been anxious, was considered to pose no threat to self or others, will be following up at [facility], information about follow up appointment, time and address provided to the pt, it is patient responsibility to follow up with outpatient clinic, PMD as well as specialists (see SW note for more detailed information). In case pt will need to obtain results of studies pending at discharge pt was provided with contact information of Psychiatric Inpatient unit [phone] as well as Medical Record Department [phone]. patient was provided with all of his prescriptions, please see medication reconciliation form. medical residency and contacted patient mother patient mother was feeling comfortable to accept patient back, at the same time patient mother wants patient to start living in assisted, patient mother was educated to initiate this process as outpatient. pt was picked up by ICMS worker Pt was educated about safety plan in case of worsening of symptoms or in case of suicidal or homicidal ideation call 911 or go to the nearest ER, also was educated to take meds as prescribed and stay away from drugs, pt verbalized understanding. Prescriptions/Medication Reconciliation: Haloperidol Decanoate [Haldol Decanoate] 200 mg IM Q30D #1 amp Benztropine [Benztropine Mesylate] 0.5 mg PO AMHS #30 tab Benztropine [Cogentin] 1 mg PO AMHS #30 tab carBAMazepine [Tegretol] 400 mg PO DAILY #14 tab Citalopram [celeXA] 10 mg PO DAILY #14 tab Citalopram [celeXA] 20 mg PO DAILY #14 tab Divalproex [Depakote ER(ONCE DAILY)] 1,500 mg PO DAILY #45 ter Ergocalciferol [Drisdol 50,000 Intl Units Cap] 1 cap PO Q7D #2 cap Multivitamin Therapeutic Tab [Thera Tab] 1 tab PO DAILY #14 tab - Smoking Cessation Smoking Cessation Medication prescribed: No Reason for not providing: patient doesn't smoke - Antipsychotic Medications Pt discharged on 2 or more routine antipsychotic medications: No
== END 2016-12-31 18:52 | disposition home or self-care (01) | DRG 430 ==
LOC: ED 11:16 → ERH 15:07 → PSYC 16:39 → UNDODISIN 12-31 14:10
PROVIDERS: ADMIT Psychologist; ATTEND Psychologist
DX: F25.0 Schizoaffective disorder, bipolar type (principal); F79 Unspecified intellectual disabilities; R45.851 Suicidal ideations; F89 Unspecified disorder of psychological development; G80.9 Cerebral palsy, unspecified; G40.909 Epilepsy, unspecified, not intractable, without status epilepticus

== ENCOUNTER 2017-02-26 11:18 | Emergency (ER) | payer OTHER ==
[2017-02-26 11:26] VITALS: BMI 30.8
[2017-02-26 11:33] VITALS: TEMP 97.8
[2017-02-26] MEDS ORDERED: Tmp-Smz 800 mg-160 mg DS Tab PO STA (11:40)
--- NOTE | 2017-02-26 11:47 | ED PDOC ---
Arrival/HPI - General Chief Complaint: Lower Extremity Problem/Injury Time Seen by Provider: 02/26/17 11:40 Historian: Patient - History of Present Illness Narrative History of Present Illness (Text): 02/26/17 11:54 36-year-old male presents today with right great toe pain. Patient states about a week and a half ago he tried to cut the nail off of the toe and thinks it's now infected. Patient states for the past week and a half he's been having pain to the toe. He denies numbness weakness or tingling in extremity. No medications have been taken for pain at home. Patient states the inside cuticle of the right toe is now red and slightly swollen. No fevers or chills. Denies any recent trauma or injury. No other complaints Time/Duration: > week (1.5 weeks) Symptom Onset: Gradual Symptom Course: Worsening Severity Level: 3 Past Medical History - Provider Review Nursing Documentation Reviewed: Yes - Travel History Have you recently traveled outside [place] w/in the past 3 mons?: No - Infectious Disease Hx of Infectious Diseases: None - Tetanus Immunization Tetanus Immunization: Unknown - Cardiac Hx Cardiac Disorders: Yes Hx Hypertension: Yes - Pulmonary Hx Respiratory Disorders: No Hx Tuberculosis: No - Neurological Hx Neurological Disorder: Yes HX Cerebrovascular Accident: No Hx Seizures: Yes - HEENT Hx HEENT Disorder: No - Renal Hx Renal Disorder: No - Endocrine/Metabolic Hx Endocrine Disorders: Yes Hx Diabetes Mellitus Type 2: Yes - Hematological/Oncological Hx Blood Disorders: No Hx Cancer: No - Integumentary Hx Dermatological Disorder: No - Musculoskeletal/Rheumatological Hx Musculoskeletal Disorders: No - Gastrointestinal Hx Gastrointestinal Disorders: No - Genitourinary/Gynecological Hx Genitourinary Disorders: No Hx Sexually Transmitted Diseases: No - Psychiatric Hx Psychophysiologic Disorder: Yes Hx Substance Use: No - Past Surgical History Past Surgical History: Unable to Obtain - Anesthesia Hx Anesthesia: Yes Hx Anesthesia Reactions: No Hx Malignant Hyperthermia: No - Suicidal Assessment Feels Threatened In Home Enviroment: No Family/Social History - Physician Review Nursing Documentation Reviewed: Yes Family/Social History: Unknown Family HX Smoking Status: Former Smoker Hx Alcohol Use: No Hx Substance Use: No Hx Substance Use Treatment: No Allergies/Home Meds Allergies/Adverse Reactions: Allergies haloperidol Allergy (Verified 12/22/16 19:33) SWELLING Review of Systems - Review of Systems Constitutional: absent: Fatigue, Fevers Respiratory: absent: SOB Cardiovascular: absent: Chest Pain Gastrointestinal: absent: Abdominal Pain Genitourinary Male: absent: Dysuria Musculoskeletal: Arthralgias Skin: absent: Laceration, Abscess Neurological: absent: Headache, Dizziness Physical Exam Vital Signs Reviewed: Yes Vital Signs Temp Pulse Resp BP Pulse Ox 02/26/17 11:18 97.8 F 79 18 126/87 98 Temperature: Afebrile Blood Pressure: Normal Pulse: Regular Respiratory Rate: Normal Appearance: Positive for: Well-Appearing, Non-Toxic, Comfortable Pain Distress: None Mental Status: Positive for: Alert and Oriented X 3 - Systems Exam Head: Present: Atraumatic Respiratory/Chest: Present: Clear to Auscultation Cardiovascular: Present: Regular Rate and Rhythm Lower Extremity: Present: NORMAL PULSES, Normal ROM, Tenderness (right great toe ; there is a small amount of edema over the lateral cuticle. no erythema; no discharge; + minimal tenderness; sensation and distal pulses intact. ), Swelling , Neurovascularly Intact, Capillary Refill < 2 s. No: Erythema, Deformity Skin: Present: Warm, Dry Psychiatric: Present: Alert Medical Decision Making ED Course and Treatment: 02/26/17 11:57 36-year-old male with an ingrown toenail on the right great toe along the lateral cuticle. Will cover for infection with Bactrim Motrin given for pain Advised follow-up with the mill labor supervisor within the next 2 days. Advised warm soaks. Advised applying bacitracin twice daily. Advised to return if symptoms worsen or persist or if new concerning symptoms develop Patient verbalizes understanding of discharge instructions and need for immediate followup. all aspects of this case were discussed the attending of record. Impression: Ingrown toenail Motrin every 6 hours as needed for pain Bactrim 1 tablet twice daily 7 days Warm soaks frequently Apply bacitracin twice daily to the affected area and Follow up with mill labor supervisor within the next 2 days Return immediately if symptoms worsen persist or if new concerning symptoms develop: High fevers, increasing pain, increasing redness, increasing swelling, purulent discharge. Disposition/Present on Arrival - Present on Arrival Any Indicators Present on Arrival: No History of DVT/PE: No History of Uncontrolled Diabetes: No Urinary Catheter: No History of Decub. Ulcer: No History Surgical Site Infection Following: None - Disposition Have Diagnosis and Disposition been Completed?: Yes Diagnosis: Ingrown left big toenail Disposition: HOME/ ROUTINE Disposition Time: 11:41 Patient Plan: Discharge Patient Problems: Current Active Problems Problem Status Onset Ingrown left big toenail Acute Condition: GOOD Discharge Instructions (ExitCare): Ingrown Nail (ED) Additional Instructions: Motrin every 6 hours as needed for pain Bactrim 1 tablet twice daily 7 days Warm soaks frequently Apply bacitracin twice daily to the affected area and Follow up with mill labor supervisor within the next 2 days Return immediately if symptoms worsen persist or if new concerning symptoms develop: High fevers, increasing pain, increasing redness, increasing swelling, purulent discharge. Prescriptions: Bacitracin OINT 1 applic TP BID #1 tube Ibuprofen [Motrin] 600 mg PO Q6H PRN #20 tab PRN Reason: pain/fever reduction Sulfamethoxazole/Trimethoprim [Bactrim DS 800 mg-160 mg] 1 tab PO BID #14 tab Referrals: Raquel Yan, [Primary Care Provider] - Follow up with primary Simran Perry DPM [Staff Provider] - Follow up with primary Steven Ventura DPM [Staff Provider] - Follow up with primary Suzi Graves MD [Staff Provider] - Follow up with primary Forms: WORK NOTE
[2017-02-26 12:11] VITALS: BP 127/80; PULSE 65; RESP 17; O2SAT 97
== END 2017-02-26 12:11 | disposition home or self-care (01) ==
LOC: ED 11:18
DX: L60.0 Ingrowing nail (principal)

== ENCOUNTER 2017-03-21 09:40 | Inpatient (IN) | payer OTHER ==
[2017-03-21 09:40] VITALS: BMI 30.8
[2017-03-21 10:30] LABS: BASO # 0.01 K/mm3 (0.0-2.0); BASO % 0.3 % (0.0-3.0); EOS # 0.1 (0.0-0.7); EOS % 1.3 % (1.5-5.0); GRAN # 2.17 (1.4-6.5); GRAN % 56.5 % (50.0-68.0); HEMOGLOBIN 13.3 gm/dL (14.0-18.0); LYMPH # 1.4 (1.2-3.4); LYMPH % 35.4 % (22.0-35.0); MEAN CELL VOLUME 90.8 fL (80.0-105.0); MEAN CORPUSCULAR HEMOGLOBIN 31.4 pg (25.0-35.0); MEAN CORPUSCULAR HGB CONC 34.6 g/dl (31.0-37.0); MEAN PLATELET VOLUME 10.5 fl (7.0-11.0); MONO # 0.3 (0.1-0.6); MONO % 6.5 % (1.0-6.0); PLATELET COUNT 163 10^3/uL (120.0-450.0); RBC 4.23 10^6/uL (3.5-6.1); RED CELL DISTRIBUTION WIDTH 12.3 % (11.5-14.5); WHITE BLOOD COUNT 3.8 10^3/ul (4.5-11.0)
[2017-03-21 10:33] LABS: URINE BILIRUBIN NEGATIVE (NEGATIVE); URINE BLOOD NEGATIVE (NEGATIVE); URINE GLUCOSE (UA) NEGATIVE (NEGATIVE); URINE LEUKOCYTE ESTERASE NEGATIVE Leu/uL (NEGATIVE); URINE NITRATE NEGATIVE (NEGATIVE); URINE PROTEIN NEGATIVE mg/dL (<30 mg/dL); URINE UROBILINOGEN 0.2 E.U./dL (<1 E.U./dL)
[2017-03-21 10:35] LABS: URINE APPEARANCE CLEAR (CLEAR); URINE COLOR YELLOW (YELLOW)
[2017-03-21 10:38] LABS: SALICYLATE < 1 mg/dL (2.0-20.0)
[2017-03-21 10:39] LABS: ACETAMINOPHEN < 10.0 ug/ml (10.0-20.0)
[2017-03-21 10:42] LABS: ALB/GLOB RATIO 1.2 (1.1-1.8); ALBUMIN 4.1 g/dL (3.0-4.8); ALT/SGPT 41 U/L (7-56); AST/SGOT 27 U/L (15-59); BLOOD UREA NITROGEN 15 mg/dL (7-21); CALCIUM 9.3 mg/dL (8.4-10.5); GFR AFRICAN-AMERICAN > 60; GFR NON-AFRICAN AMERICAN > 60
[2017-03-21 10:52] LABS: BARBITURATES, UR NEGATIVE (NEGATIVE); BENZODIAZEPINES, UR NEGATIVE (NEGATIVE); OPIATES, UR NEGATIVE (NEGATIVE); PHENCYCLIDINE, UR NEGATIVE (NEGATIVE)
--- NOTE | 2017-03-21 11:03 | ED PDOC ---
Arrival/HPI - General Chief Complaint: Psychiatric Evaluation Time Seen by Provider: 03/21/17 09:50 Historian: Patient - History of Present Illness Narrative History of Present Illness (Text): 03/21/17 11:00 36-year-old male with a history of bipolar disorder presents today brought in by police after a possible suicide attempt. Patient states he's been feeling really depressed lately and he tied a belt around his neck in an attempt to hang himself. Patient denies abdominal pain. No chest pain or shortness of breath. Denies headache dizziness or weakness. Denies fevers or chills. No abdominal pain. No nausea or vomiting. Patient states he is intermittently been taking his medications. No fevers or chills. No other complaints Time/Duration: Prior to Arrival Symptom Course: Unchanged Past Medical History - Provider Review Nursing Documentation Reviewed: Yes - Travel History Have you recently traveled outside [place] w/in the past 3 mons?: No - Infectious Disease Hx of Infectious Diseases: None - Tetanus Immunization Tetanus Immunization: Unknown - Cardiac Hx Cardiac Disorders: Yes Hx Hypertension: Yes - Pulmonary Hx Respiratory Disorders: No Hx Tuberculosis: No - Neurological Hx Neurological Disorder: Yes HX Cerebrovascular Accident: No Hx Seizures: Yes - HEENT Hx HEENT Disorder: No - Renal Hx Renal Disorder: No - Endocrine/Metabolic Hx Endocrine Disorders: Yes Hx Diabetes Mellitus Type 2: Yes - Hematological/Oncological Hx Blood Disorders: No Hx Cancer: No - Integumentary Hx Dermatological Disorder: No - Musculoskeletal/Rheumatological Hx Musculoskeletal Disorders: No - Gastrointestinal Hx Gastrointestinal Disorders: No - Genitourinary/Gynecological Hx Genitourinary Disorders: No Hx Sexually Transmitted Diseases: No - Psychiatric Hx Psychophysiologic Disorder: Yes Hx Substance Use: No - Past Surgical History Past Surgical History: Unable to Obtain - Anesthesia Hx Anesthesia: Yes Hx Anesthesia Reactions: No Hx Malignant Hyperthermia: No - Suicidal Assessment Feels Threatened In Home Enviroment: No Family/Social History - Physician Review Nursing Documentation Reviewed: Yes Family/Social History: Unknown Family HX Smoking Status: Former Smoker Hx Alcohol Use: No Hx Substance Use: No Hx Substance Use Treatment: No Allergies/Home Meds Allergies/Adverse Reactions: Allergies haloperidol Allergy (Verified 03/21/17 10:14) SWELLING Review of Systems - Review of Systems Constitutional: absent: Fatigue, Fevers Eyes: absent: Vision Changes ENT: absent: Sore Throat, Sinus Congestion Respiratory: absent: SOB, Cough Cardiovascular: absent: Chest Pain, Palpitations Gastrointestinal: absent: Abdominal Pain, Nausea, Vomiting Genitourinary Male: absent: Dysuria Musculoskeletal: absent: Arthralgias, Back Pain, Neck Pain Skin: absent: Rash, Pruritis Neurological: absent: Headache, Dizziness Psychiatric: Depression, Suicidal Ideation Physical Exam Vital Signs Reviewed: Yes Vital Signs Temp Pulse Resp BP Pulse Ox 03/21/17 16:53 98.7 F 86 18 131/76 98 03/21/17 10:07 97.6 F 85 18 131/86 95 Temperature: Afebrile Blood Pressure: Normal Pulse: Regular Respiratory Rate: Normal Appearance: Positive for: Well-Appearing, Non-Toxic, Comfortable Pain Distress: None Mental Status: Positive for: Alert and Oriented X 3 - Systems Exam Head: Present: Atraumatic Mouth: Present: Moist Mucous Membranes Neck: Present: Normal Range of Motion Respiratory/Chest: Present: Clear to Auscultation, Good Air Exchange. No: Respiratory Distress, Accessory Muscle Use Cardiovascular: Present: Regular Rate and Rhythm, Normal S1, S2. No: Murmurs Abdomen: No: Tenderness Upper Extremity: Present: Normal ROM Lower Extremity: Present: Normal ROM Neurological: Present: GCS=15, Speech Normal Skin: Present: Warm, Dry, Normal Color. No: Rashes Psychiatric: Present: Alert, Oriented x 3 Medical Decision Making ED Course and Treatment: 03/21/17 11:04 Patient is nontoxic well-appearing in no distress vital signs are stable. CBC Wbc: 3.8 CMP WNL Tylenol WNL Salicylate WNL Alcohol level WNL Urine drug screen wnl UA; wnl chest xray Creator : Catherine Mao MD 03/21/17 11:18 IMPRESSION: Low lung volumes may be related to poor inspiratory effort. No active pulmonary disease. ekg NSR at 75b/m no st elevations, normal axis, normal intervals. pt is medically cleared for PES evaluation Patient was seen and evaluated by PES screener: kee Patient agrees to voluntary admission to the psychiatric floor. Consent obtained by PES assistant portfolio manager. Impression; schizophrenia, depression, suicidal ideation Admit to behavioral health floor Dr. Harmon - Lab Interpretations Lab Results: 03/21/17 10:15 03/21/17 10:15 Lab Results 03/21/17 10:20: Urine Opiates Screen Negative, Urine Methadone Screen Negative, Ur Barbiturates Screen Negative, Ur Phencyclidine Scrn Negative, Ur Amphetamines Screen Negative, U Benzodiazepines Scrn Negative, U Oth Cocaine Metabols Negative, U Cannabinoids Screen Negative 03/21/17 10:20: Urine Color Yellow, Urine Appearance Clear, Urine pH 7.0, Ur Specific [place] 1.020, Urine Protein Negative, Urine Glucose (UA) Negative, Urine Ketones Negative, Urine Blood Negative, Urine Nitrate Negative, Urine Bilirubin Negative, Urine Urobilinogen 0.2, Ur Leukocyte Esterase Negative 03/21/17 10:15: Alcohol, Quantitative < 10 03/21/17 10:15: Salicylates < 1 L, Acetaminophen < 10.0 L 03/21/17 10:15: Sodium 142, Potassium 3.8, Chloride 105, Carbon Dioxide 25, Anion Gap 16, BUN 15, Creatinine 0.8, Est GFR ( Amer) > 60, Est GFR (Non- Af Amer) > 60, Random Glucose 96, Calcium 9.3, Total Bilirubin 0.3, AST 27, ALT 41, Alkaline Phosphatase 72, Total Protein 7.6, Albumin 4.1, Globulin 3.5, Albumin/Globulin Ratio 1.2 03/21/17 10:15: WBC 3.8 L D, RBC 4.23, Hgb 13.3 L, Hct 38.4 L, MCV 90.8, MCH 31.4, MCHC 34.6, RDW 12.3, Plt Count 163, MPV 10.5, Gran % 56.5, Lymph % (Auto) 35.4 H, [place] % (Auto) 6.5 H, Eos % (Auto) 1.3 L, Baso % (Auto) 0.3, Gran # 2.17 , Lymph # 1.4, [place]bert # 0.3, Eos # 0.1, Baso # 0.01 - RAD Interpretation Radiology Orders: 03/21/17 09:52 CHEST PORTABLE [RAD] Stat - Medication Orders Current Medication Orders: Benztropine Mesylate (Cogentin) 0.5 mg PO DAILY CHASE Carbamazepine (Tegretol) 200 mg PO BID CHASE PRN Reason: Protocol Citalopram Hydrobromide (Celexa) 20 mg PO DAILY CHASE Divalproex Sodium (Depakote Er(Once Daily)) 1,500 mg PO HS CHASE PRN Reason: Protocol Montelukast Sodium (Singulair) 10 mg PO DAILY CHASE Trazodone HCl (Desyrel) 50 mg PO HS PRN PRN Reason: Insomnia Ziprasidone (Geodon Cap) 20 mg PO Q6H PRN; Protocol PRN Reason: Agitation Disposition/Present on Arrival - Present on Arrival Any Indicators Present on Arrival: No History of DVT/PE: No History of Uncontrolled Diabetes: No Urinary Catheter: No History of Decub. Ulcer: No History Surgical Site Infection Following: None - Disposition Have Diagnosis and Disposition been Completed?: Yes Diagnosis: Suicidal ideation Disposition: HOSPITALIZED Disposition Time: 11:30 Patient Plan: Admission Condition: FAIR
--- NOTE | 2017-03-21 11:18 | RAD ---
HISTORY: PES EVAL COMPARISON: 12/20/2016. FINDINGS: LUNGS: There are low lung volumes. The lungs are clear. No focal consolidation. PLEURA: No significant pleural effusion identified, no pneumothorax apparent. CARDIOVASCULAR: Normal. OSSEOUS STRUCTURES: No significant abnormalities. VISUALIZED UPPER ABDOMEN: Normal. OTHER FINDINGS: None. IMPRESSION: Low lung volumes may be related to poor inspiratory effort. No active pulmonary disease.
--- NOTE | 2017-03-21 19:09 | PCM.BM ---
<Valeria Carroll - Last Filed: 03/21/17 19:06> Treatment Plan Problems - Problems identified on initial assessmt SELF HARM Date Initiated: 03/21/17 Time Initiated: 19:00 Assessment reference: NA Status: Active Priority: 1 SOCIAL ISOLATION Date Initiated: 03/21/17 Time Initiated: 19:00 Assessment reference: NA Status: Active Priority: 2 SUICIDAL IDEATION Date Initiated: 03/21/17 Time Initiated: 19:00 Assessment reference: NA Status: Active Priority: 3 HOPELESS/HELPLESS Date Initiated: 03/21/17 Time Initiated: 19:00 Assessment reference: NA Status: Active Priority: 4 INEFFECTIVE COPING SKILLS Date Initiated: 03/21/17 Time Initiated: 19:00 Assessment reference: NA Priority: 5 SELF ESTEEM DISTURBANCE Date Initiated: 03/21/17 Time Initiated: 19:00 Assessment reference: NA Status: Active Priority: 6 Treatment assets and liabiliti Patient Assests: adapts well, cooperative, motivated, ADL independent, physically healthy, negotiates basic needs, cognitively intact Patient Liabilities: live alone - Milieu Protocol Maintain good personal hygiene: daily Encourage regular showers, daily Remind patient to perform daily oral care, daily Assist patient to perform ADL's Maintain personal safety: every shift Educate patient to report safety concerns to staff, every shift Monitor environment for contraband/sharps Medication safety: Monitor for expected outcome, potential side effects: every shift, Assess barriers to learning: every shift, Assess readiness for medication education: every shift Discharge/Continuing Care - Education Needs Education Needs: Patient Medication, Patient Diagnosis/Disease Process, Patient Coping Skills, Patient Community resources, Patient Activities of Daily Living, Patient Health Practices/Safety, Patient Personal Hygiene/Grooming, Patient Aftercare Safety Plan - Discharge Discharge Criteria: Tolerates medication w/o severe side effects, Free of Suicidal thoughts, Free of paranoid thoughts, Free of agitation, Normal sleep pattern, Ability to care for self, Reduction of target symptoms Discharge to:: Home <Eden Patricio - Last Filed: 03/23/17 15:54> - Diagnosis (1) Schizoaffective disorder, bipolar type Status: Acute Interventions: 03/23/17 15:55 Psychoeducation/psychotherapy Psychopharmacology/adjustment of medications as needed/ monitoring possible side effects Evaluate pt on daily basis Compliance with medications and follow up appointments Long acting medication if pt is noncompliant with pill form Suicide and homicide risk assessment and prevention, coping strategies, safety plan Relapse prevention Reduction of symptoms Improve functional status Possible assertive community treatment Cognitive behavioral therapy Family intervention Possible social skill training as outpatient <Melissa Merchant - Last Filed: 03/24/17 11:00> Family Contact - Outside Agency Cerebral Palsy [facility] Care involvment: Following patient during stay, Information-sharing Agency contact name: Otto Abraham Agency contact number: [phone] Department of Developmental Disabilities Care involvment: Following patient during stay, Information-sharing Agency contact name: Florence Morgan([phone]). Leona Francis([phone])
--- NOTE | 2017-03-21 20:55 | CARD ---
APPROVED REPORT EKG Measurement Heart [id number] [id number] <Conclusion> Normal sinus rhythm Nonspecific T wave abnormality Abnormal ECG
[2017-03-21] MEDS: Divalproex 500 mg ER (ONCE DAILY formulation) PO SCH (21:49)
[2017-03-22 06:47] VITALS: O2SAT 97
[2017-03-22 08:18] LABS: HDL CHOLESTEROL 29 mg/dL (29-60); LDL CHOLESTEROL 112 mg/dL (0-129)
[2017-03-22 08:26] LABS: FREE T4 0.97 ng/dL (0.78-2.19)
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
[2017-03-22] MEDS: Divalproex 500 mg ER (ONCE DAILY formulation) PO SCH (22:28)
[2017-03-23 07:21] VITALS: RESP 20
--- NOTE | 2017-03-23 15:46 | PCM.PYCHPN ---
Psychiatric Progress Note - Psychiatric Progress Note Patient seen today, length of contact: 30min Patient Chief Complaint: "I am bored, I don't know what to do..." Problems Identified/Issues Discussed: Suicide/ homicide prevention, past psychiatric h/o, current psychiatric symptoms , medical problems, risk/benefits and alternatives of medications, medications compliance, coping strategies, substance abuse h/o, relapse prevention, importance of follow up with psychiatrist and therapist, discharge plan. Medical Problems: cerebral palsy seizures neurocognitive disorder Diagnostic Results: 03/21/17 10:15 03/21/17 10:15 Lab Results 03/23/17 07:10: Valproic Acid 52 03/22/17 07:30: Triglycerides 153, Cholesterol 168, LDL Cholesterol Direct 112, HDL Cholesterol 29 03/22/17 07:30: RPR Nonreactive 03/22/17 07:30: Free T4 0.97, TSH 3rd Generation 5.68 H 03/21/17 10:20: Urine Opiates Screen Negative, Urine Methadone Screen Negative, Ur Barbiturates Screen Negative, Ur Phencyclidine Scrn Negative, Ur Amphetamines Screen Negative, U Benzodiazepines Scrn Negative, U Oth Cocaine Metabols Negative, U Cannabinoids Screen Negative 03/21/17 10:20: Urine Color Yellow, Urine Appearance Clear, Urine pH 7.0, Ur Specific [place] 1.020, Urine Protein Negative, Urine Glucose (UA) Negative, Urine Ketones Negative, Urine Blood Negative, Urine Nitrate Negative, Urine Bilirubin Negative, Urine Urobilinogen 0.2, Ur Leukocyte Esterase Negative 03/21/17 10:15: Alcohol, Quantitative < 10 03/21/17 10:15: Salicylates < 1 L, Acetaminophen < 10.0 L 03/21/17 10:15: Sodium 142, Potassium 3.8, Chloride 105, Carbon Dioxide 25, Anion Gap 16, BUN 15, Creatinine 0.8, Est GFR ( Amer) > 60, Est GFR (Non- Af Amer) > 60, Random Glucose 96, Calcium 9.3, Total Bilirubin 0.3, AST 27, ALT 41, Alkaline Phosphatase 72, Total Protein 7.6, Albumin 4.1, Globulin 3.5, Albumin/Globulin Ratio 1.2 03/21/17 10:15: WBC 3.8 L D, RBC 4.23, Hgb 13.3 L, Hct 38.4 L, MCV 90.8, MCH 31.4, MCHC 34.6, RDW 12.3, Plt Count 163, MPV 10.5, Gran % 56.5, Lymph % (Auto) 35.4 H, [place] % (Auto) 6.5 H, Eos % (Auto) 1.3 L, Baso % (Auto) 0.3, Gran # 2.17 , Lymph # 1.4, [place] # 0.3, Eos # 0.1, Baso # 0.01 Vital Signs Temp Pulse Resp BP Pulse Ox 03/23/17 07:20 97.9 F 80 20 112/62 03/22/17 16:00 92 H 124/87 03/22/17 06:46 97.4 F L 70 18 141/78 97 03/21/17 16:53 98.7 F 86 18 131/76 98 03/21/17 10:07 97.6 F 85 18 131/86 95 DSM 5 Symptoms Update: Patient is a 35 yo male with history of Schizoaffective Disorder, Cerebral Palsy, Intellectual Disability, multiple admissions-most recently discharged from [facility] 12/2016, pt is under care of [facility] , patient was BIBA to the ER for evaluation after his mother called 911 saying patient was gallant with 2 belts around his neck, rule out suicidal attempt. Patient was seen, examined at the treatment team meeting, personal hygiene is improving. pt has cognitive limitations c/o that he is board, at the same time refused to go to the groups. as per other pt report W,B he is her neighbour, pt was sexually preoccupied with her in the community, was making inappropriate remarks, that is why pt was let go from the IOP program at [facility]. as per RN report pt is low profile, self isolating, pt also has inappropriate affect, was giggling when was talking about is suicidal attempt. pt was given assignment to find things what makes pt feel happy yesterday, but pt said "I forgot", passive role in his tx. pt tolerated meds well, no side effects observed or reported. AIMS 0, no EPS. as per SW pt was on 200mg IM q2 weeks of Haldol Dec, but as per PES report 100mg IM qmonth, last injection was on 14 of March. will find out. family meeting scheduled for tomorrow. Impression: (1) Schizoaffective disorder depressive type 2) Intellectual disability (developmental disorder), unspecified 3) ADD 4) Cerebral palsy Medication Change: Yes (celexa increased) Medical Record Reviewed: Yes Consults ordered or reviewed: medical consult was called, appreciated Mental Status Examination - Cognitive Function Orientation: Person, Place Memory: Intact Attention: Poor Concentration: Poor Association: Loose Fund of Knowledge: Poor - Mood Mood: Depressed - Affect Affect: Other (innapropriate, pt was laughing and giggling while talking aobut his Suicidal attempt) - Formal Thought Process Formal Thought Process: Other (thought process disorganized) - Suicidal Ideation Suicidal Ideation: No - Homicidal Ideation Homicidal Ideation: No Goal/Treatment Plan - Goal/Treatment Plan Need for Continued Stay: Remain at risks for inpatient hospitalization, Severe depression anxiety, Discharge may exacerbated symptoms, Severe functional impairment Progress Toward Problem(s) and Goals/Treatment Plan: milieu, structure, supportive therapy will f/u on the dose of Haldol decanoate (pt is on Haldol decanoate 200mg [id number], confirmed by SW yesterday) Celexa 30 mg daily for depression and anxiety Tegretol 200 mg twice a day will be continued Medical team will be called when necessary medications Will monitor closely leather production worker evaluation Family involvement family meeting tomorrow Estimated Date of D/C: 03/28/17 (will monitor closely)
--- NOTE | 2017-03-23 18:18 | CP.PCM.CON ---
<Shan Finch - Last Filed: 03/23/17 18:16> History of Present Illness - History of Present Illness History of Present Illness: Medicine Consult - Shan Finch DO PGY - 1 CC: Suicidal Ideation HPI: Patient, Danny Mcclain, is a 36 year old male with a past medical history of seizures, bipolar disorder, and depression, who presents with a c/o suicidal ideation in which he was found with two belts around his neck. He complains of intermittent nausea when he eats too fast. He denies chest pain, shortness of breath, vomiting, diarrhea, fevers, and chills. PSH: colonoscopy and EGD in 2013 PMHx: See HPI Allergies: Haloperidol Social: denies tobacco FMH: depression, DM Meds: reviewed MAR Review of Systems - Hematologic/Lymphatic Additional comments: ROS: Constitutional: pt denies fever, chills, generalized weakness ENT: pt denies dysphagia, otalgia, hearing deficit, rhinorrhea Eyes: pt denies sudden loss of vision, diplopia, blurred vision MSK: pt denies muscle stiffness, joint pain, extremity cramping Cardio: pt denies sob, heart murmur, cp Pulm: pt denies cough, hemoptysis, wheeze GI: pt denies loss of appetite, abdominal pain, constipation, melena, n/v/d : pt denies burning on urination, urinary frequency, hematuria, urinary urgency Neuro: pt denies paresis, paresthesia, dizziness, boudreaux, numbness, tingling Derm: pt denies skin changes, lesions, nail changes Endo: pt denies intolerance to heat/cold, diaphoresis, night sweats, polydipsia Psych: +see HPI Past Patient History - Infectious Disease Hx of Infectious Diseases: None - Tetanus Immunizations Tetanus Immunization: Unknown - Past Social History Smoking Status: Former Smoker - CARDIAC Hx Cardiac Disorders: Yes Hx Hypertension: Yes - PULMONARY Hx Respiratory Disorders: No Hx Tuberculosis: No - NEUROLOGICAL Hx Neurological Disorder: Yes HX Cerebrovascular Accident: No Hx Seizures: Yes - HEENT Hx HEENT Problems: No - RENAL Hx Chronic Kidney Disease: No - ENDOCRINE/METABOLIC Hx Endocrine Disorders: Yes Hx Diabetes Mellitus Type 2: Yes - HEMATOLOGICAL/ONCOLOGICAL Hx Blood Disorders: No Hx Cancer: No - INTEGUMENTARY Hx Dermatological Problems: No - MUSCULOSKELETAL/RHEUMATOLOGICAL Hx Musculoskeletal Disorders: No - GASTROINTESTINAL Hx Gastrointestinal Disorders: No - GENITOURINARY/GYNECOLOGICAL Hx Genitourinary Disorders: No Hx Sexually Transmitted Disorders: No - PSYCHIATRIC Hx Substance Use: No - SURGICAL HISTORY Hx Surgeries: Yes (BX L LEG R/T CP (prev. triage)) - ANESTHESIA Hx Anesthesia: Yes Hx Anesthesia Reactions: No Hx Malignant Hyperthermia: No Meds Allergies/Adverse Reactions: Allergies Allergy/AdvReac Type Severity Reaction Status Date / Time haloperidol Allergy SWELLING Verified 03/22/17 08:14 - Medications Medications: Current Medications Benztropine Mesylate (Cogentin) 0.5 mg PO DAILY [facility] Last Admin: 03/23/17 08:43 Dose: 0.5 mg Carbamazepine (Tegretol) 200 mg PO BID CHASE PRN Reason: Protocol Last Admin: 03/23/17 17:38 Dose: 200 mg Citalopram Hydrobromide (Celexa) 30 mg PO DAILY [facility] Last Admin: 03/23/17 08:43 Dose: 30 mg Divalproex Sodium (Depakote Er(Once Daily)) 1,500 mg PO HS CHASE PRN Reason: Protocol Last Admin: 03/22/17 22:28 Dose: 1,500 mg Famotidine (Pepcid) 40 mg PO HS CHASE Montelukast Sodium (Singulair) 10 mg PO DAILY [facility] Last Admin: 03/23/17 08:43 Dose: 10 mg Trazodone HCl (Desyrel) 50 mg PO HS PRN PRN Reason: Insomnia Last Admin: 03/22/17 22:28 Dose: 50 mg Ziprasidone (Geodon Cap) 20 mg PO Q6H PRN; Protocol PRN Reason: Agitation Ziprasidone (Geodon Inj) 20 mg IM Q6H PRN; Protocol PRN Reason: Agitation Physical Exam - Additional Findings Additional findings: VS as above Constitutional: a&o x 4, nad Head and Neck: neck supple, no jvd, trachea midline, carotid midline, no cervical/head mass Eyes: bruce, nonicteric sclera, eom intact ENT: auditory acuity grossly intact, throat not congested, no nasal deformity Cardio: rrr, no m/r/g, no carotid bruit, nml s1, s2 Pulm: no accessory muscle use, equal nml breath sounds bilaterally, ctab Abd: s/nt/nd, nbs x 4 q, no palpable masses Derm: no rashes, no ulcers, no lesions Extr: no edema, no cyanosis, no calf tenderness, no lesions, no varicosities Neuro: cn II-XII grossly intact, ue and le 5/5 muscle strength bilaterally, no los ue, le bilaterally and core Results - Vital Signs Recent Vital Signs: Last Vital Signs Temp 97.9 F 03/23/17 07:20 Pulse 95 H 03/23/17 16:00 Resp 20 03/23/17 07:20 BP 137/86 03/23/17 16:00 Pulse Ox 97 03/22/17 06:46 - Labs Result Diagrams: 03/21/17 10:15 03/21/17 10:15 Labs: Laboratory Results - last 24 hr 03/22/17 03/23/17 07:30 07:10 Valproic Acid 52 RPR Nonreactive Assessment & Plan - Assessment and Plan (Free Text) Assessment: A/P: 36 y/o male presenting with primary complaint of suicidal ideation , seeing us for medical management. 1. Hx/O Psychiatric conditions - Continue home medications - Follow psych recommendations 2. GI/DVT PPHXS - pepcid/ambulation <Walter Schmidt - Last Filed: 03/24/17 14:46> Meds - Medications Medications: Current Medications Acetaminophen (Tylenol 325mg Tab) 650 mg PO Q4H PRN PRN Reason: Pain, Mild (1-3) Al Hydrox/Mg Hydrox/Simethicone (Maalox Plus 30 Ml) 30 ml PO DAILY PRN PRN Reason: Upset Stomach Benztropine Mesylate (Cogentin) 0.5 mg PO DAILY [facility] Last Admin: 03/24/17 08:29 Dose: 0.5 mg Carbamazepine (Tegretol) 200 mg PO BID CHASE PRN Reason: Protocol Last Admin: 03/24/17 08:30 Dose: 200 mg Citalopram Hydrobromide (Celexa) 30 mg PO DAILY [facility] Last Admin: 03/24/17 08:29 Dose: 30 mg Divalproex Sodium (Depakote Er(Once Daily)) 1,500 mg PO HS CHASE PRN Reason: Protocol Last Admin: 03/23/17 21:36 Dose: 1,500 mg Famotidine (Pepcid) 40 mg PO HS [facility] Last Admin: 03/23/17 21:36 Dose: 40 mg Magnesium Hydroxide (Milk Of Magnesia) 30 ml PO DAILY PRN PRN Reason: Constipation Montelukast Sodium (Singulair) 10 mg PO DAILY [facility] Last Admin: 03/24/17 08:30 Dose: 10 mg Trazodone HCl (Desyrel) 50 mg PO HS PRN PRN Reason: Insomnia Last Admin: 03/23/17 21:36 Dose: 50 mg Ziprasidone (Geodon Cap) 20 mg PO Q6H PRN; Protocol PRN Reason: Agitation Ziprasidone (Geodon Inj) 20 mg IM Q6H PRN; Protocol PRN Reason: Agitation Results - Vital Signs Recent Vital Signs: Last Vital Signs Temp 98.1 F 03/24/17 07:14 Pulse 75 03/24/17 07:14 Resp 20 03/24/17 07:14 BP 109/64 03/24/17 07:14 Pulse Ox 97 03/22/17 06:46 - Labs Result Diagrams: 03/21/17 10:15 03/21/17 10:15 Attending/Attestation - Attestation I have personally seen and examined this patient.: Yes I have fully participated in the care of the patient.: Yes I have reviewed all pertinent clinical information: Yes Notes (Text): Patient seen and examined with the resident. Agree with the resident's evaluation, assessment and plan.
[2017-03-23] MEDS: Divalproex 500 mg ER (ONCE DAILY formulation) PO SCH (21:36)
[2017-03-23] MEDS ORDERED: Magnesium Hydroxide Susp 30 ml UD PO PRN (23:43)
[2017-03-23] MEDS ORDERED: Alum-Mag Hydrox-Simethicone Susp (30 mL) PO PRN (23:43)
--- NOTE | 2017-03-24 15:43 | PCM.PYCHPN ---
Psychiatric Progress Note - Psychiatric Progress Note Patient seen today, length of contact: 30min Patient Chief Complaint: "I come up with things what I like to do..., I like watching TV, but it is boring..." Problems Identified/Issues Discussed: Suicide/ homicide prevention, past psychiatric h/o, current psychiatric symptoms , medical problems, risk/benefits and alternatives of medications, medications compliance, coping strategies, substance abuse h/o, relapse prevention, importance of follow up with psychiatrist and therapist, discharge plan. Medical Problems: cerebral palsy seizures neurocognitive disorder Diagnostic Results: 03/21/17 10:15 03/21/17 10:15 Lab Results 03/23/17 07:10: Valproic Acid 52 03/22/17 07:30: Triglycerides 153, Cholesterol 168, LDL Cholesterol Direct 112, HDL Cholesterol 29 03/22/17 07:30: RPR Nonreactive 03/22/17 07:30: Free T4 0.97, TSH 3rd Generation 5.68 H 03/21/17 10:20: Urine Opiates Screen Negative, Urine Methadone Screen Negative, Ur Barbiturates Screen Negative, Ur Phencyclidine Scrn Negative, Ur Amphetamines Screen Negative, U Benzodiazepines Scrn Negative, U Oth Cocaine Metabols Negative, U Cannabinoids Screen Negative 03/21/17 10:20: Urine Color Yellow, Urine Appearance Clear, Urine pH 7.0, Ur Specific [place] 1.020, Urine Protein Negative, Urine Glucose (UA) Negative, Urine Ketones Negative, Urine Blood Negative, Urine Nitrate Negative, Urine Bilirubin Negative, Urine Urobilinogen 0.2, Ur Leukocyte Esterase Negative 03/21/17 10:15: Alcohol, Quantitative < 10 03/21/17 10:15: Salicylates < 1 L, Acetaminophen < 10.0 L 03/21/17 10:15: Sodium 142, Potassium 3.8, Chloride 105, Carbon Dioxide 25, Anion Gap 16, BUN 15, Creatinine 0.8, Est GFR ( Amer) > 60, Est GFR (Non- Af Amer) > 60, Random Glucose 96, Calcium 9.3, Total Bilirubin 0.3, AST 27, ALT 41, Alkaline Phosphatase 72, Total Protein 7.6, Albumin 4.1, Globulin 3.5, Albumin/Globulin Ratio 1.2 03/21/17 10:15: WBC 3.8 L D, RBC 4.23, Hgb 13.3 L, Hct 38.4 L, MCV 90.8, MCH 31.4, MCHC 34.6, RDW 12.3, Plt Count 163, MPV 10.5, Gran % 56.5, Lymph % (Auto) 35.4 H, [place] % (Auto) 6.5 H, Eos % (Auto) 1.3 L, Baso % (Auto) 0.3, Gran # 2.17 , Lymph # 1.4, [place] # 0.3, Eos # 0.1, Baso # 0.01 Vital Signs Temp Pulse Resp BP Pulse Ox 03/23/17 07:20 97.9 F 80 20 112/62 03/22/17 16:00 92 H 124/87 03/22/17 06:46 97.4 F L 70 18 141/78 97 03/21/17 16:53 98.7 F 86 18 131/76 98 03/21/17 10:07 97.6 F 85 18 131/86 95 DSM 5 Symptoms Update: Patient is a 35 yo male with history of Schizoaffective Disorder, Cerebral Palsy, Intellectual Disability, multiple admissions-[place] [facility] [place], pt is under care of [facility] , patient was BIBA to the ER for evaluation after his mother called 911 saying patient was gallant with 2 belts around his neck, rule out suicidal attempt. Patient was seen, examined at the treatment team meeting, personal hygiene is improving. pt has cognitive limitations c/o that he is board, patient was asked to, up with the latest of things what he likes to do. Patient reported that he likes to watch TV at the same time patient made the statement "it is boring" patient was not able to explain why he put it on the list of things he likes doing. Pt still has disorganized thought process, pt was smiling inappropriately when was talking abut his suicidal attempt. SW had meeting with Direct Care Counselor, Charles Rosario, Leona Francis from [facility] [place] and [facility] casey saw operator, Brittany Morgan , see notes for more detailed info. 03/24/17 as per RN report pt also has inappropriate affect, was giggling when was talking about is suicidal attempt. pt tolerated meds well, no side effects observed or reported. AIMS 0, no EPS. as per SW pt was on 200mg IM q2 weeks of Haldol Dec, confirmed by [facility] last dose was in 03/14/17, next dose 03/28/17 family meeting scheduled for tomorrow. Impression: (1) Schizoaffective disorder depressive type 2) Intellectual disability (developmental disorder), unspecified 3) ADD 4) Cerebral palsy Medication Change: Yes (celexa increased yesterday) Medical Record Reviewed: Yes Mental Status Examination - Cognitive Function Orientation: Person, Place Memory: Intact Attention: Poor Concentration: Poor Association: Loose Fund of Knowledge: Poor - Mood Mood: Depressed - Affect Affect: Other (innapropriate, pt was laughing and giggling while talking aobut his Suicidal attempt) - Formal Thought Process Formal Thought Process: Other (thought process disorganized) - Suicidal Ideation Suicidal Ideation: No - Homicidal Ideation Homicidal Ideation: No Goal/Treatment Plan - Goal/Treatment Plan Need for Continued Stay: Remain at risks for inpatient hospitalization, Severe depression anxiety, Discharge may exacerbated symptoms, Severe functional impairment Progress Toward Problem(s) and Goals/Treatment Plan: milieu, structure, supportive therapy will f/u on the dose of Haldol decanoate (pt is on Haldol decanoate 200mg [id number], confirmed by RODRIGO yesterday) next dose 03/28/17 Celexa 30 mg daily for depression and anxiety Tegretol 200 mg twice a day will be continued Medical team will be called when necessary medications Will monitor closely home health care worker evaluation Family involvement family meeting tomorrow Estimated Date of D/C: 03/28/17 (will monitor closely)
[2017-03-24] MEDS: Divalproex 500 mg ER (ONCE DAILY formulation) PO SCH (22:25)
--- NOTE | 2017-03-25 15:57 | PCM.PYCHPN ---
Psychiatric Progress Note - Psychiatric Progress Note Patient seen today, length of contact: 30min Patient Chief Complaint: "I come up with things what I like to do..., I like watching TV, but it is boring..." Problems Identified/Issues Discussed: Suicide/ homicide prevention, past psychiatric h/o, current psychiatric symptoms , medical problems, risk/benefits and alternatives of medications, medications compliance, coping strategies, substance abuse h/o, relapse prevention, importance of follow up with psychiatrist and therapist, discharge plan. Medical Problems: cerebral palsy seizures neurocognitive disorder Diagnostic Results: 03/21/17 10:15 03/21/17 10:15 Lab Results 03/23/17 07:10: Valproic Acid 52 03/22/17 07:30: Triglycerides 153, Cholesterol 168, LDL Cholesterol Direct 112, HDL Cholesterol 29 03/22/17 07:30: RPR Nonreactive 03/22/17 07:30: Free T4 0.97, TSH 3rd Generation 5.68 H 03/21/17 10:20: Urine Opiates Screen Negative, Urine Methadone Screen Negative, Ur Barbiturates Screen Negative, Ur Phencyclidine Scrn Negative, Ur Amphetamines Screen Negative, U Benzodiazepines Scrn Negative, U Oth Cocaine Metabols Negative, U Cannabinoids Screen Negative 03/21/17 10:20: Urine Color Yellow, Urine Appearance Clear, Urine pH 7.0, Ur Specific [place] 1.020, Urine Protein Negative, Urine Glucose (UA) Negative, Urine Ketones Negative, Urine Blood Negative, Urine Nitrate Negative, Urine Bilirubin Negative, Urine Urobilinogen 0.2, Ur Leukocyte Esterase Negative 03/21/17 10:15: Alcohol, Quantitative < 10 03/21/17 10:15: Salicylates < 1 L, Acetaminophen < 10.0 L 03/21/17 10:15: Sodium 142, Potassium 3.8, Chloride 105, Carbon Dioxide 25, Anion Gap 16, BUN 15, Creatinine 0.8, Est GFR ( Amer) > 60, Est GFR (Non- Af Amer) > 60, Random Glucose 96, Calcium 9.3, Total Bilirubin 0.3, AST 27, ALT 41, Alkaline Phosphatase 72, Total Protein 7.6, Albumin 4.1, Globulin 3.5, Albumin/Globulin Ratio 1.2 03/21/17 10:15: WBC 3.8 L D, RBC 4.23, Hgb 13.3 L, Hct 38.4 L, MCV 90.8, MCH 31.4, MCHC 34.6, RDW 12.3, Plt Count 163, MPV 10.5, Gran % 56.5, Lymph % (Auto) 35.4 H, [place] % (Auto) 6.5 H, Eos % (Auto) 1.3 L, Baso % (Auto) 0.3, Gran # 2.17 , Lymph # 1.4, [place] # 0.3, Eos # 0.1, Baso # 0.01 Vital Signs Temp Pulse Resp BP Pulse Ox 03/23/17 07:20 97.9 F 80 20 112/62 03/22/17 16:00 92 H 124/87 03/22/17 06:46 97.4 F L 70 18 141/78 97 03/21/17 16:53 98.7 F 86 18 131/76 98 03/21/17 10:07 97.6 F 85 18 131/86 95 DSM 5 Symptoms Update: Patient is a 35 yo male with history of Schizoaffective Disorder, Cerebral Palsy, Intellectual Disability, multiple admissions-most recently discharged [place] [facility] [place]2016, pt is under care of [facility] , patient was BIBA to the ER for evaluation after his mother called 911 saying patient was gallant with 2 belts around his neck, rule out suicidal attempt. Patient was seen, examined at the treatment team meeting, personal hygiene is improving. pt has cognitive limitations c/o that he is board, at the same time pt is smiling inappropriately. pt was able to recollect what was yesterday meeting about "RESPID service, I till go away for couple of days, I will stay in the hotel, will go to the movies" (SW had meeting with Direct Care Counselor , Leona Ludwig from [facility] [place] and [facility] watch case polisher, Brittany Morgan , see notes for more detailed info. 03/24/17). Pt still has disorganized thought process, pt was smiling inappropriately when was talking abut his suicidal attempt. safety plan was d/w pt, pt said that next time "I will call my mom". pt tolerated meds well, no side effects observed or reported. AIMS 0, no EPS. as per SW pt was on 200mg IM q2 weeks of Haldol Dec, confirmed by [facility] last dose was in 03/14/17, next dose 03/28/17 family meeting scheduled for tomorrow. Impression: (1) Schizoaffective disorder depressive type 2) Intellectual disability (developmental disorder), unspecified 3) ADD Medication Change: Yes (celexa increased yesterday) Medical Record Reviewed: Yes Mental Status Examination - Cognitive Function Orientation: Person, Place Memory: Intact Attention: Poor Concentration: Poor Association: Loose Fund of Knowledge: Poor - Mood Mood: Depressed - Affect Affect: Other (innapropriate, pt was laughing and giggling while talking aobut his Suicidal attempt) - Formal Thought Process Formal Thought Process: Other (thought process disorganized) - Suicidal Ideation Suicidal Ideation: No - Homicidal Ideation Homicidal Ideation: No Goal/Treatment Plan - Goal/Treatment Plan Need for Continued Stay: Remain at risks for inpatient hospitalization, Severe depression anxiety, Discharge may exacerbated symptoms, Severe functional impairment Progress Toward Problem(s) and Goals/Treatment Plan: milieu, structure, supportive therapy will f/u on the dose of Haldol decanoate (pt is on Haldol decanoate 200mg [id number], confirmed by RODRIGO yesterday) next dose 03/28/17 Celexa 30 mg daily for depression and anxiety Tegretol 200 mg twice a day will be continued Medical team will be called when necessary medications Will monitor closely apartment maintenance worker evaluation Family involvement family meeting tomorrow Estimated Date of D/C: 03/28/17 (will monitor closely)
[2017-03-25] MEDS: Divalproex 500 mg ER (ONCE DAILY formulation) PO SCH (21:57)
--- NOTE | 2017-03-26 09:24 | PCM.PYCHPN ---
Psychiatric Progress Note - Psychiatric Progress Note Patient seen today, length of contact: 25 min Patient Chief Complaint: "all right" Problems Identified/Issues Discussed: I reviewed assessment and recent notes. I met with patient at bedside. He is groomed, calm and cooperative. Patient is oriented to month, year and location. He is superficially oriented to circumstances. Focus is fair and responses are relevant to questioning. He reports that he is doing "all right". Continues to deny SI or HI. Has been tolerating medications and does not complain of any discomfort or pain. Indicates he hasn't slept well x3 days. Presently patient denies hallucinations though he is oddly related and smiles brightly, almost inappropriately. He doesn't appear to be responding to internal stimuli during our interview. Insight and judgment are still poor and impulse control is improving. Has been superficially friendly on the unit, attending and participating in groups. There were no major behavioral issues overnight. Diagnostic Results: Schizoaffective disorder depressive type Intellectual disability (developmental disorder), unspecified ADD Medication Change: Yes (trazodone increased to 100 mg HS) Medical Record Reviewed: Yes Mental Status Examination - Cognitive Function Orientation: Person, Place Memory: Intact Attention: Poor Concentration: Poor Association: Loose Fund of Knowledge: Poor - Mood Mood: Depressed ("all right") - Affect Affect: Other (innapropriate) - Speech Speech: Appropriate - Formal Thought Process Formal Thought Process: Other (thought process disorganized) - Suicidal Ideation Suicidal Ideation: No - Homicidal Ideation Homicidal Ideation: No Goal/Treatment Plan - Goal/Treatment Plan Need for Continued Stay: Remain at risks for inpatient hospitalization, Severe depression anxiety, Discharge may exacerbated symptoms, Severe functional impairment Progress Toward Problem(s) and Goals/Treatment Plan: * c/w current tx and plan * c/w depakote ER 1500 mg HS, VPA level on 03/23/17=52 for mood control * c/w tegretol 200 mg po bid for mood control, check tegretol level in the AM * c/w celexa 30 mg po daily for depression * NOTE: Pt was on 200mg IM q2 weeks of Haldol Dec, confirmed by [facility] last dose was in 03/14/17, next dose 03/28/17. * c/w cogentin 0.5 mg po daily for EPS prophylaxis * Trazodone increased to 100 mg HS on 03/26/17 to target continued sleep restlessness (off-label) * No new weekend labs * Vitals reviewed and noted below: Selected Entries 03/25/17 03/25/17 07:26 16:28 Temperature 98.0 F 97.6 F Pulse Rate 72 78 Respiratory 20 Rate Blood Pressure 115/70 125/82 Estimated Date of D/C: 03/28/17 (will monitor closely)
[2017-03-26] MEDS: Divalproex 500 mg ER (ONCE DAILY formulation) PO SCH (21:49)
--- NOTE | 2017-03-27 08:44 | PCM.PYCHPN ---
Psychiatric Progress Note - Psychiatric Progress Note Patient seen today, length of contact: 25 min Patient Chief Complaint: "all right" Problems Identified/Issues Discussed: I reviewed recent notes and met with patient at bedside. He is groomed, calm and cooperative. Patient is oriented to month, year and location. He is superficially oriented to circumstances. Focus is fair and responses are relevant to questioning. He reports that he is doing "all right". Continues to deny SI or HI. Has been tolerating medications and does not complain of any discomfort or pain. Indicates he slept better with the increase in trazodone yesterday. Presently patient denies hallucinations though he is a little oddly related and smiles brightly, almost inappropriately. He doesn't appear to be responding to internal stimuli during our interview. Insight, judgment and impulse control are improving. Has been superficially friendly on the unit, attending and participating in groups. Tries to make jokes. There were no major behavioral issues overnight. Diagnostic Results: Schizoaffective disorder depressive type Intellectual disability (developmental disorder), unspecified ADD Medication Change: Yes (trazodone increased to 100 mg HS on 03/26/17) Medical Record Reviewed: Yes Mental Status Examination - Cognitive Function Orientation: Person, Place Memory: Intact Attention: Poor Concentration: Poor Association: Loose Fund of Knowledge: Poor - Mood Mood: Depressed ("all right") - Affect Affect: Other (innapropriate) - Speech Speech: Appropriate - Formal Thought Process Formal Thought Process: Other (thought process disorganized) - Suicidal Ideation Suicidal Ideation: No - Homicidal Ideation Homicidal Ideation: No Goal/Treatment Plan - Goal/Treatment Plan Need for Continued Stay: Remain at risks for inpatient hospitalization, Severe depression anxiety, Discharge may exacerbated symptoms, Severe functional impairment Progress Toward Problem(s) and Goals/Treatment Plan: * c/w current tx and plan * c/w depakote ER 1500 mg HS for mood control, VPA level on 03/23/17=52 * c/w tegretol 200 mg po bid for mood control, tegretol level on 03/26/17=7 * c/w celexa 30 mg po daily for depression * NOTE: Pt was on 200mg IM q2 weeks of Haldol Dec, confirmed by [facility] last dose was in 03/14/17, next dose 03/28/17. * c/w cogentin 0.5 mg po daily for EPS prophylaxis * Trazodone increased to 100 mg HS on 03/26/17 to target continued sleep restlessness (off-label) * Vitals reviewed and noted below: Selected Entries 03/26/17 03/26/17 07:00 16:00 Temperature 98.2 F Pulse Rate 71 63 Respiratory 20 Rate Blood Pressure 121/65 118/78 * Weekend labs summarized below: 03/26/17 12:10 Carbamazepine 7 Estimated Date of D/C: 03/28/17 (will monitor closely)
[2017-03-27] MEDS: Divalproex 500 mg ER (ONCE DAILY formulation) PO SCH (22:01)
[2017-03-28] MEDS ORDERED: Haloperidol Decanoate 100 mg/ml Inj IM ONE (09:00)
--- NOTE | 2017-03-28 10:33 | PCM.PYCHPN ---
Psychiatric Progress Note - Psychiatric Progress Note Patient seen today, length of contact: 25 min Patient Chief Complaint: "all right" Problems Identified/Issues Discussed: I reviewed recent notes and met with patient at bedside. He is groomed, calm and cooperative. Patient remains oriented to month, year and location. He is superficially oriented to circumstances. Focus is fair and responses are relevant to questioning. Today he tells me that he is depressed and that he wants to . Then he tells me he is bored on the unit. Continues to deny SI or HI. Has been tolerating medications and does not complain of any discomfort or pain. Indicates he continues to sleep better with the increase in trazodone implemented x2 days ago. Presently patient denies hallucinations though he is still a little oddly related and smiles brightly, almost inappropriately. However patient is not bizarre and doesn't appear to be responding to internal stimuli during our interview. Insight, judgment and impulse control are improving. Has been superficially friendly on the unit, attending and participating in groups. Tries to make jokes. There were no major behavioral issues overnight. Diagnostic Results: Schizoaffective disorder depressive type Intellectual disability (developmental disorder), unspecified ADD Medication Change: Yes (trazodone increased to 100 mg HS on 03/26/17) Medical Record Reviewed: Yes Mental Status Examination - Cognitive Function Orientation: Person, Place Memory: Intact Attention: Poor Concentration: Poor Association: Loose Fund of Knowledge: Poor - Mood Mood: Depressed ("I want to ") - Affect Affect: Other (innapropriate) - Speech Speech: Appropriate - Formal Thought Process Formal Thought Process: Other (thought process disorganized) - Suicidal Ideation Suicidal Ideation: No - Homicidal Ideation Homicidal Ideation: No Goal/Treatment Plan - Goal/Treatment Plan Need for Continued Stay: Remain at risks for inpatient hospitalization, Severe depression anxiety, Discharge may exacerbated symptoms, Severe functional impairment Progress Toward Problem(s) and Goals/Treatment Plan: * c/w current tx and plan * c/w depakote ER 1500 mg HS for mood control, VPA level on 03/23/17=52 * c/w tegretol 200 mg po bid for mood control, tegretol level on 03/26/17=7 * c/w celexa 30 mg po daily for depression * NOTE: Pt was on 200mg IM q2 weeks of Haldol Dec, confirmed by [facility] last dose was in 03/14/17, next dose 03/28/17. * c/w cogentin 0.5 mg po daily for EPS prophylaxis * Trazodone increased to 100 mg HS on 03/26/17 to target continued sleep restlessness (off-label) * Vitals reviewed and noted below: Selected Entries 03/27/17 03/27/17 07:00 16:27 Temperature 97.5 F L Pulse Rate 68 98 H Respiratory 20 Rate Blood Pressure 100/61 118/78 * Weekend labs summarized below: 03/26/17 12:10 Carbamazepine 7 Estimated Date of D/C: 03/28/17 (will monitor closely)
[2017-03-28] MEDS: Divalproex 500 mg ER (ONCE DAILY formulation) PO SCH (22:22)
[2017-03-29 07:42] VITALS: BP 116/61; PULSE 60; TEMP 97.9
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
== END 2017-03-29 14:31 | disposition home or self-care (01) | DRG 430 ==
LOC: ED 09:40 → ERH 15:39 → PSYC 17:29
PROVIDERS: ADMIT Psychiatry & Neurology Psychiatry; ATTEND Psychiatry & Neurology Psychiatry
DX: F25.0 Schizoaffective disorder, bipolar type (principal); G80.9 Cerebral palsy, unspecified; F79 Unspecified intellectual disabilities; E66.9 Obesity, unspecified; G40.909 Epilepsy, unspecified, not intractable, without status epilepticus; Z68.31 Body mass index [BMI] 31.0-31.9, adult; F98.8 Other specified behavioral and emotional disorders with onset usually occurring in childhood and adolescence

== ENCOUNTER 2017-05-28 11:19 | Emergency (ER) | payer OTHER ==
[2017-05-28 11:37] VITALS: RESP 16; TEMP 98; BMI 33.6
--- NOTE | 2017-05-28 12:21 | ED PDOC ---
Arrival/HPI - General Historian: Patient - History of Present Illness Time/Duration: Other (see hpi) Context: Home - General Chief Complaint: Lower Extremity Problem/Injury Time Seen by Provider: 05/28/17 12:14 - History of Present Illness Narrative History of Present Illness (Text): 05/28/17 12:16 This 36 yo male presents to this ED c/o left great toe nail pain x 2 days. Pain is worsening. Patient thinks it is an ingrown toe nail. Patient denies trauma, or discharge. (Vera Alas) Past Medical History - Provider Review Nursing Documentation Reviewed: Yes - Infectious Disease Hx of Infectious Diseases: None - Tetanus Immunization Tetanus Immunization: Unknown - Cardiac Hx Cardiac Disorders: Yes Hx Hypertension: Yes - Pulmonary Hx Respiratory Disorders: No Hx Tuberculosis: No - Neurological Hx Neurological Disorder: Yes HX Cerebrovascular Accident: No Hx Seizures: Yes - HEENT Hx HEENT Disorder: No - Renal Hx Renal Disorder: No - Endocrine/Metabolic Hx Endocrine Disorders: Yes Hx Diabetes Mellitus Type 2: Yes - Hematological/Oncological Hx Blood Disorders: No Hx Cancer: No - Integumentary Hx Dermatological Disorder: No - Musculoskeletal/Rheumatological Hx Musculoskeletal Disorders: No - Gastrointestinal Hx Gastrointestinal Disorders: No - Genitourinary/Gynecological Hx Genitourinary Disorders: No Hx Sexually Transmitted Diseases: No - Psychiatric Hx Anxiety: Yes Hx Bipolar Disorder: Yes Hx Depression: Yes Hx Schizophrenia: Yes Hx Substance Use: No - Past Surgical History Past Surgical History: Unable to Obtain - Anesthesia Hx Anesthesia: Yes Hx Anesthesia Reactions: No Hx Malignant Hyperthermia: No - Suicidal Assessment Feels Threatened In Home Enviroment: No Family/Social History - Physician Review Nursing Documentation Reviewed: Yes Family/Social History: Other (non-contributory) Smoking Status: Former Smoker Hx Alcohol Use: No Hx Substance Use: No Hx Substance Use Treatment: No Allergies/Home Meds Allergies/Adverse Reactions: Allergies haloperidol Allergy (Mild, Verified 05/28/17 11:28) SWELLING Home Medications: Home Meds Medication Instructions Recorded Confirmed Benztropine [Cogentin] 0 mg PO DAILY 05/28/17 05/28/17 Citalopram [celeXA] 30 mg PO DAILY 05/28/17 05/28/17 Review of Systems - Review of Systems Constitutional: Normal. absent: Fatigue, Weight Change, Fevers, Night Sweats Eyes: Normal ENT: Normal Respiratory: Normal Cardiovascular: Normal Gastrointestinal: Normal Genitourinary Male: Normal Musculoskeletal: Other (see hpi) Skin: Normal Neurological: Normal Endocrine: Normal Hemo/Lymphatic: Normal Psychiatric: Normal Physical Exam Temperature: Afebrile Blood Pressure: Normal Pulse: Regular Respiratory Rate: Normal Appearance: Positive for: Well-Appearing, Non-Toxic, Comfortable Pain Distress: None Mental Status: Positive for: Alert and Oriented X 3 - Systems Exam Head: Present: Atraumatic, Normocephalic Pupils: Present: PERRL Extroacular Muscles: Present: EOMI Conjunctiva: Present: Normal Mouth: Present: Moist Mucous Membranes Neck: Present: Normal Range of Motion Upper Extremity: Present: Normal Inspection, Normal ROM, NORMAL PULSES, Neurovascularly Intact, Capillary Refill < 2s. No: Edema Lower Extremity: Present: Normal Inspection, NORMAL PULSES, Normal ROM, Other ( Subtle left medial toe nail tenderness. No erythema, no drainage or swelling. no ecchymosis). No: Edema, CALF TENDERNESS, Chica's Sign, Tenderness, Erythema , Temperature Abnormalties, Neurovascularly Intact, Capillary Refill < 2 s Neurological: Present: GCS=15, CN II-XII Intact, Speech Normal, Motor Func Grossly Intact, Normal Sensory Function, Normal Cerebellar Funct, Gait Normal Skin: Present: Warm, Dry, Rashes Vital Signs Temp Pulse Resp BP Pulse Ox 05/28/17 12:40 70 16 132/98 H 97 05/28/17 11:28 98 F 78 16 133/75 99 Medical Decision Making Re-evaluation Time: 12:24 Reassessment Condition: Re-examined, Improved ED Course and Treatment: 05/28/17 12:24 Re-evaluation. Patient feels better. Discussed results and plan with patient who expresses understanding. All questions answered and there is agreement with the plan to discharge home with instructions. Patient stable for discharge. Return if symptoms persist or worsen. Patient was recommended to f/u Dr. Ambrose [facility] in 1-2 days for follow up visit. Patient was recommended to do warmth Epson salt soaking on left foot 3- 4 times a day, and to take ABX as recommended. (Vera Alas) I was available for consultation during PA evaluation. The chart was reviewed by me, and I agree with disposition. The documented history was done by the physician tree cutter. The documented physical exam was done by the physician tree cutter. The documented procedures were done by the physician tree cutter. (Félix Lundberg) - Medication Orders Current Medication Orders: Discontinued Medications Trimethoprim/Sulfamethoxazole (Bactrim Ds Tab) 1 tab PO STAT STA PRN Reason: Protocol Stop: 05/28/17 12:26 Last Admin: 05/28/17 12:40 Dose: 1 tab Disposition/Present on Arrival - Present on Arrival Any Indicators Present on Arrival: No History of DVT/PE: No History of Uncontrolled Diabetes: No Urinary Catheter: No History of Decub. Ulcer: No History Surgical Site Infection Following: None - Disposition Have Diagnosis and Disposition been Completed?: Yes Disposition Time: 12:25 Patient Plan: Discharge - Disposition Diagnosis: Ingrowing nail, left great toe Disposition: HOME/ ROUTINE Condition: GOOD Discharge Instructions (ExitCare): Ingrown Nail (ED) Additional Instructions: Call private [facility] doctor for follow up visit in 1-2 days. Take medication as instructed. Place foot on warmth Epson salt water 3 to 4 times a day. Return to emergency if symptoms. Prescriptions: Sulfamethoxazole/Trimethoprim [Bactrim DS 800 mg-160 mg] 1 tab PO BID #20 tab Referrals: Sunita Gutierrez MD [Primary Care Provider] - Follow up with primary Alo Ambrose DPM [Staff Provider] - Follow up with primary Forms: [employer] (Welsh)
[2017-05-28] MEDS ORDERED: Tmp-Smz 800 mg-160 mg DS Tab PO STA (12:25)
[2017-05-28 12:45] VITALS: BP 132/98; PULSE 70; O2SAT 97
== END 2017-05-28 12:44 | disposition home or self-care (01) ==
LOC: ED 11:19
DX: L60.0 Ingrowing nail (principal)

== ENCOUNTER 2017-10-17 08:50 | Emergency (ER) | payer OTHER ==
[2017-10-17] MEDS ORDERED: TDAP Vaccine 0.5 mL Syr IM ONE (10:05)
--- NOTE | 2017-10-17 10:17 | ED PDOC ---
Arrival/HPI - General Chief Complaint: Abnormal Skin Integrity Time Seen by Provider: 10/17/17 10:05 Historian: Patient - History of Present Illness Narrative History of Present Illness (Text): 10/17/17 10:13 37yr old male presents today with a laceration to the left lateral thigh/hip since last night. pt states he thinks a part of the spring of the bed cut him last night. pt states he has been picking at it and cleaned it with peroxide and tried to cut the skin off with a scissor. pt c/o minimal pain to laceration site. denies fever/chills. unsure of last tetanus shot. no dizziness or weakness. no other complaints. Time/Duration: Other (8PM last night) Symptom Onset: Sudden Symptom Course: Unchanged Quality: Aching Past Medical History - Provider Review Nursing Documentation Reviewed: Yes - Travel History Have you recently traveled outside [place] w/in the past 3 mons?: No - Infectious Disease Hx of Infectious Diseases: None - Tetanus Immunization Tetanus Immunization: Unknown - Cardiac Hx Cardiac Disorders: Yes Hx Hypertension: Yes - Pulmonary Hx Respiratory Disorders: No Hx Tuberculosis: No - Neurological Hx Neurological Disorder: Yes HX Cerebrovascular Accident: No Hx Seizures: Yes - HEENT Hx HEENT Disorder: No - Renal Hx Renal Disorder: No - Endocrine/Metabolic Hx Endocrine Disorders: Yes Hx Diabetes Mellitus Type 2: Yes - Hematological/Oncological Hx Blood Disorders: No Hx Cancer: No - Integumentary Hx Dermatological Disorder: No - Musculoskeletal/Rheumatological Hx Musculoskeletal Disorders: No - Gastrointestinal Hx Gastrointestinal Disorders: No - Genitourinary/Gynecological Hx Genitourinary Disorders: No Hx Sexually Transmitted Diseases: No - Psychiatric Hx Anxiety: Yes Hx Bipolar Disorder: Yes Hx Depression: Yes Hx Schizophrenia: Yes Hx Substance Use: No - Past Surgical History Past Surgical History: Unable to Obtain - Anesthesia Hx Anesthesia: Yes Hx Anesthesia Reactions: No Hx Malignant Hyperthermia: No - Suicidal Assessment Feels Threatened In Home Enviroment: No Family/Social History - Physician Review Nursing Documentation Reviewed: Yes Family/Social History: Unknown Family HX Smoking Status: Former Smoker Hx Alcohol Use: No Hx Substance Use: No Hx Substance Use Treatment: No Allergies/Home Meds Allergies/Adverse Reactions: Allergies haloperidol Allergy (Mild, Verified 10/17/17 09:42) SWELLING Home Medications: Home Meds Medication Instructions Recorded Confirmed Benztropine [Cogentin] 0 mg PO DAILY 05/28/17 05/28/17 Citalopram [celeXA] 30 mg PO DAILY 05/28/17 05/28/17 Review of Systems - Review of Systems Constitutional: absent: Fatigue, Fevers Respiratory: absent: SOB, Cough Cardiovascular: absent: Chest Pain, Palpitations Gastrointestinal: absent: Abdominal Pain, Nausea, Vomiting Genitourinary Male: absent: Dysuria Musculoskeletal: absent: Back Pain Skin: Laceration Neurological: absent: Headache, Dizziness Psychiatric: absent: Anxiety, Depression, Suicidal Ideation Physical Exam Vital Signs Reviewed: Yes Temperature: Afebrile Blood Pressure: Normal Pulse: Regular Respiratory Rate: Normal Appearance: Positive for: Well-Appearing, Non-Toxic, Comfortable Pain Distress: None Mental Status: Positive for: Alert and Oriented X 3 - Systems Exam Head: Present: Atraumatic Neck: Present: Normal Range of Motion Respiratory/Chest: Present: Clear to Auscultation, Good Air Exchange. No: Respiratory Distress, Accessory Muscle Use Cardiovascular: Present: Regular Rate and Rhythm, Normal S1, S2. No: Murmurs Upper Extremity: Present: Normal Inspection Lower Extremity: Present: Tenderness, Neurovascularly Intact, Other (Left lateral hip; there is a small 1cm of superficial laceration; without surrounding erythema; minimal tenderness. no purulent discharge; ). No: Swelling, Erythema, Deformity, Capillary Refill < 2 s Neurological: Present: GCS=15, Speech Normal Skin: Present: Warm, Dry Psychiatric: Present: Alert, Oriented x 3 Medical Decision Making ED Course and Treatment: 10/17/17 10:20 Patient is nontoxic well appearing in no distress. Vital signs are stable. Wound irrigated well with high pressure irrigation Tetanus updated keflex po Laceration is greater than 12 hours old; superficial and small will allow to heal by secondary intention; Bacitracin and dressing applied Patient was advised to keep the wound clean and dry, apply bacitracin twice daily. Advised to return immediately if signs of infection develop or return if any other concerning symptoms develop Impression: Laceration, leg Motrin every 6 hours as needed for pain Keflex; one tablet four times daily x 7 days Keep the wound clean and dry, apply bacitracin twice daily Return immediately if signs of infection develop: High fevers, increasing pain, redness, swelling, purulent discharge Follow up with the surgeon within the next 2 days. Followup with primary care physician within the next 2 days Return if any other concerning symptoms develop - Medication Orders Current Medication Orders: Discontinued Medications Cephalexin Monohydrate (Keflex) 500 mg PO STAT STA PRN Reason: Protocol Stop: 10/17/17 10:06 Tetanus/Reduced Diphtheria/Acell Pertussis (Boostrix Vaccine Inj) 0.5 ml IM .ONCE ONE Stop: 10/17/17 10:06 Disposition/Present on Arrival - Present on Arrival Any Indicators Present on Arrival: No History of DVT/PE: No History of Uncontrolled Diabetes: No Urinary Catheter: No History of Decub. Ulcer: No History Surgical Site Infection Following: None - Disposition Have Diagnosis and Disposition been Completed?: Yes Diagnosis: Laceration of leg Disposition: HOME/ ROUTINE Disposition Time: 10:22 Patient Plan: Discharge Condition: GOOD Discharge Instructions (ExitCare): Laceration (ED) Additional Instructions: Motrin every 6 hours as needed for pain Keflex; one tablet four times daily x 7 days Keep the wound clean and dry, apply bacitracin twice daily Return immediately if signs of infection develop: High fevers, increasing pain, redness, swelling, purulent discharge Follow up with the surgeon within the next 2 days. Followup with primary care physician within the next 2 days Return if any other concerning symptoms develop Prescriptions: Bacitracin OINT 1 applic TP BID #1 tube Cephalexin [Keflex] 500 mg PO QID #28 capsule Referrals: Suzi Graves MD [Staff Provider] - Follow up with primary Onofre Jeffery MD [Medical Doctor] - Follow up with primary
[2017-10-17 10:36] VITALS: BP 126/81; PULSE 94; RESP 16; TEMP 98.3; O2SAT 98
[2017-10-17 10:41] VITALS: BMI 32.5
== END 2017-10-17 10:45 | disposition home or self-care (01) ==
LOC: ED 08:50
DX: S71.112A Laceration without foreign body, left thigh, initial encounter (principal); W45.8XXA Other foreign body or object entering through skin, initial encounter; Y92.003 Bedroom of unspecified non-institutional (private) residence as the place of occurrence of the external cause; Z23 Encounter for immunization

== ENCOUNTER 2017-10-23 16:15 | Emergency (ER) | payer OTHER ==
[2017-10-23 16:16] VITALS: BMI 32.5
[2017-10-23 16:34] VITALS: RESP 18; TEMP 98.2
--- NOTE | 2017-10-23 18:40 | ED PDOC ---
Arrival/HPI - General Chief Complaint: Abnormal Skin Integrity Time Seen by Provider: 10/23/17 17:21 Historian: Patient - History of Present Illness Narrative History of Present Illness (Text): 10/23/17 19:03 37-year-old male presents today with injury to the left thigh. Patient states one week ago he sustained an injury to the left thigh. Patient states he was cut by a piece of metal on the bed. Patient states she took the medications but hasn't been applying any ointment. Patient states he's been picking at the wound and it isn't getting better. Patient states it hurts minimally. No fevers or chills. No other complaints Time/Duration: > week Past Medical History - Provider Review Nursing Documentation Reviewed: Yes - Travel History Have you recently traveled outside [place] w/in the past 3 mons?: No - Infectious Disease Hx of Infectious Diseases: None - Tetanus Immunization Tetanus Immunization: Up to Date - Cardiac Hx Cardiac Disorders: Yes Hx Hypertension: Yes - Pulmonary Hx Respiratory Disorders: No Hx Tuberculosis: No - Neurological Hx Neurological Disorder: Yes HX Cerebrovascular Accident: No Hx Seizures: Yes - HEENT Hx HEENT Disorder: No - Renal Hx Renal Disorder: No - Endocrine/Metabolic Hx Endocrine Disorders: Yes Hx Diabetes Mellitus Type 2: Yes - Hematological/Oncological Hx Blood Disorders: No Hx Cancer: No - Integumentary Hx Dermatological Disorder: No - Musculoskeletal/Rheumatological Hx Musculoskeletal Disorders: No - Gastrointestinal Hx Gastrointestinal Disorders: No - Genitourinary/Gynecological Hx Genitourinary Disorders: No Hx Sexually Transmitted Diseases: No - Psychiatric Hx Anxiety: Yes Hx Bipolar Disorder: Yes Hx Depression: Yes Hx Schizophrenia: Yes Hx Substance Use: No - Past Surgical History Past Surgical History: Unable to Obtain - Anesthesia Hx Anesthesia: Yes Hx Anesthesia Reactions: No Hx Malignant Hyperthermia: No - Suicidal Assessment Feels Threatened In Home Enviroment: No Family/Social History - Physician Review Nursing Documentation Reviewed: Yes Family/Social History: Unknown Family HX Smoking Status: Former Smoker Hx Alcohol Use: No Hx Substance Use: No Hx Substance Use Treatment: No Allergies/Home Meds Allergies/Adverse Reactions: Allergies haloperidol Allergy (Mild, Verified 10/17/17 09:42) SWELLING Home Medications: Home Meds Medication Instructions Recorded Confirmed Benztropine [Cogentin] 0 mg PO DAILY 05/28/17 05/28/17 Citalopram [celeXA] 30 mg PO DAILY 05/28/17 05/28/17 Review of Systems - Review of Systems Constitutional: absent: Fatigue, Fevers Respiratory: absent: SOB, Cough Cardiovascular: absent: Chest Pain, Palpitations Gastrointestinal: absent: Abdominal Pain, Nausea, Vomiting Genitourinary Male: absent: Dysuria Musculoskeletal: Arthralgias Skin: Rash Neurological: absent: Headache, Dizziness Psychiatric: absent: Anxiety, Depression Physical Exam Vital Signs Reviewed: Yes Vital Signs Temp Pulse Resp BP Pulse Ox 10/23/17 16:30 98.2 F 92 H 18 102/68 98 Temperature: Afebrile Blood Pressure: Normal Pulse: Regular Respiratory Rate: Normal Appearance: Positive for: Well-Appearing, Non-Toxic, Comfortable Pain Distress: None Mental Status: Positive for: Alert and Oriented X 3 - Systems Exam Head: Present: Atraumatic Mouth: Present: Moist Mucous Membranes Respiratory/Chest: Present: Clear to Auscultation Cardiovascular: Present: Regular Rate and Rhythm Abdomen: No: Tenderness Lower Extremity: Present: NORMAL PULSES, Normal ROM, Neurovascularly Intact, Capillary Refill < 2 s, Other (left lateral thigh; there is a small 1cm area of abrasion; without surrounding erythema or tenderness; ). No: CALF TENDERNESS, Tenderness, Swelling, Erythema, Deformity Neurological: Present: GCS=15 Skin: Present: Warm, Dry, Normal Color. No: Rashes Psychiatric: Present: Alert, Oriented x 3 Medical Decision Making ED Course and Treatment: 10/23/17 19:10 Patient is nontoxic in no distress with stable vital signs Patient with a one-week history wound to the left thigh without surrounding erythema or tenderness X-rays of the left femur revealed no visualized foreign body We'll change the antibiotic to Bactrim. Advised follow-up with primary care physician. Advised to return if symptoms worsen persist or new concerning symptoms develop. I told patient that he must stop picking at the wound to allow it to heal. Patient verbalizes understanding of discharge instructions and need for immediate followup. all aspects of this case were discussed the attending of record. Impression: Laceration, leg, wound check apply bacitracin twice daily bactrim 1 tablet twice daily x 7 days follow up with the primary care physician within the next 2 days. keep wounds clean and dry return if symptoms worsen,persist or if new symptoms develop; High fevers, increasing pain, redness, swelling or purulent discharge. - RAD Interpretation Radiology Orders: 10/23/17 18:40 Femur Left [FEMUR MIN 2 VIEWS LT] [RAD] Stat Disposition/Present on Arrival - Present on Arrival Any Indicators Present on Arrival: No History of DVT/PE: No History of Uncontrolled Diabetes: No Urinary Catheter: No History of Decub. Ulcer: No History Surgical Site Infection Following: None - Disposition Have Diagnosis and Disposition been Completed?: Yes Diagnosis: Abrasion of left thigh Disposition: HOME/ ROUTINE Disposition Time: 18:21 Patient Plan: Discharge Patient Problems: Current Active Problems Problem Status Onset Abrasion of left thigh Acute Condition: GOOD Additional Instructions: apply bacitracin twice daily bactrim 1 tablet twice daily x 7 days follow up with the primary care physician within the next 2 days. keep wounds clean and dry return if symptoms worsen,persist or if new symptoms develop; High fevers, increasing pain, redness, swelling or purulent discharge. Prescriptions: Bacitracin OINT 1 applic TP BID #1 tube Sulfamethoxazole/Trimethoprim [Bactrim DS 800 mg-160 mg] 1 tab PO BID #14 tab Referrals: PCP,NO [Primary Care Provider] - Follow up with primary Zechariah Guerra MD [Staff Provider] - Follow up with primary [facility] [Outside] - Follow up with primary [facility] [Outside] - Follow up with primary Forms: [employer] (Gabonese)
[2017-10-23 19:12] VITALS: BP 110/66; PULSE 80; O2SAT 99
--- NOTE | 2017-10-24 09:09 | RAD ---
PROCEDURE: Left Femur Radiographs. HISTORY: injury to upper thigh, r/o fb COMPARISON: None. TECHNIQUE: AP and Lateral Radiographs of the left femur. FINDINGS: FEMUR: Normal. No fracture. SOFT TISSUES: Normal. OTHER FINDINGS: None. IMPRESSION: Unremarkable radiographs of the left femur.
== END 2017-10-23 19:18 | disposition home or self-care (01) ==
LOC: ED 16:15
DX: S70.312A Abrasion, left thigh, initial encounter (principal); W45.8XXA Other foreign body or object entering through skin, initial encounter; I10 Essential (primary) hypertension; E11.9 Type 2 diabetes mellitus without complications; Z87.891 Personal history of nicotine dependence

== ENCOUNTER 2017-11-26 14:13 | Emergency (ER) | payer OTHER ==
[2017-11-26 14:25] VITALS: BMI 25.8
[2017-11-26 15:47] VITALS: BP 139/74; PULSE 88; RESP 18; O2SAT 98
--- NOTE | 2017-11-26 16:06 | ED PDOC ---
Arrival/HPI - General Chief Complaint: Lower Extremity Problem/Injury Time Seen by Provider: 11/26/17 14:38 Historian: Patient - History of Present Illness Narrative History of Present Illness (Text): 11/26/17 14:40 37 year old male, with past medical history of hypertension, seizure and diabetes, presents to the Emergency department complaining of discomfort to his right 4th toe since yesterday. Patient informs itchiness and warm to touch in the particular area. Patient denies any drainage or direct trauma to the wound. Patient denies any fever, chills, nausea, vomiting, diarrhea, abdominal pain, chest pain, shortness of breath or any other complaints. PMD: Dr. Toya Brooks Time/Duration: 24 hours Symptom Onset: Gradual Symptom Course: Unchanged Activities at Onset: Light Context: Home Past Medical History - Provider Review Nursing Documentation Reviewed: Yes - Infectious Disease Hx of Infectious Diseases: None - Tetanus Immunization Tetanus Immunization: Up to Date - Cardiac Hx Cardiac Disorders: Yes Hx Hypertension: Yes - Pulmonary Hx Respiratory Disorders: No Hx Tuberculosis: No - Neurological Hx Neurological Disorder: Yes HX Cerebrovascular Accident: No Hx Seizures: Yes - HEENT Hx HEENT Disorder: No - Renal Hx Renal Disorder: No - Endocrine/Metabolic Hx Endocrine Disorders: Yes Hx Diabetes Mellitus Type 2: Yes - Hematological/Oncological Hx Blood Disorders: No Hx Cancer: No - Integumentary Hx Dermatological Disorder: No - Musculoskeletal/Rheumatological Hx Musculoskeletal Disorders: No - Gastrointestinal Hx Gastrointestinal Disorders: No - Genitourinary/Gynecological Hx Genitourinary Disorders: No Hx Sexually Transmitted Diseases: No - Psychiatric Hx Anxiety: Yes Hx Bipolar Disorder: Yes Hx Depression: Yes Hx Schizophrenia: Yes Hx Substance Use: No - Past Surgical History Past Surgical History: Unable to Obtain - Anesthesia Hx Anesthesia: Yes Hx Anesthesia Reactions: No Hx Malignant Hyperthermia: No - Suicidal Assessment Feels Threatened In Home Enviroment: No Family/Social History - Physician Review Nursing Documentation Reviewed: Yes Family/Social History: No Known Family HX Smoking Status: Former Smoker Hx Alcohol Use: No Hx Substance Use: No Hx Substance Use Treatment: No Allergies/Home Meds Allergies/Adverse Reactions: Allergies haloperidol Allergy (Mild, Verified 11/26/17 14:25) SWELLING Home Medications: Home Meds Medication Instructions Recorded Confirmed Benztropine [Cogentin] 0 mg PO DAILY 05/28/17 05/28/17 Citalopram [celeXA] 30 mg PO DAILY 05/28/17 05/28/17 Review of Systems - Physician Review All systems were reviewed & negative as marked: Yes - Review of Systems Constitutional: Normal. absent: Fevers Eyes: Normal ENT: Normal Respiratory: Normal. absent: SOB Cardiovascular: Normal. absent: Chest Pain Gastrointestinal: Normal. absent: Abdominal Pain, Diarrhea, Nausea, Vomiting Genitourinary Male: Normal Musculoskeletal: Normal Skin: Other (right 4th toe itchiness) Neurological: Normal Endocrine: Normal Hemo/Lymphatic: Normal Psychiatric: Normal Physical Exam Vital Signs Reviewed: Yes Vital Signs Pulse Resp BP Pulse Ox 11/26/17 14:14 88 18 139/74 98 Temperature: Afebrile Blood Pressure: Normal Pulse: Regular Respiratory Rate: Normal Appearance: Positive for: Well-Appearing, Non-Toxic, Comfortable Pain Distress: None Mental Status: Positive for: Alert and Oriented X 3 - Systems Exam Head: Present: Atraumatic, Normocephalic Pupils: Present: PERRL Extroacular Muscles: Present: EOMI Conjunctiva: Present: Normal Mouth: Present: Moist Mucous Membranes Neck: Present: Normal Range of Motion Respiratory/Chest: Present: Clear to Auscultation, Good Air Exchange. No: Respiratory Distress, Accessory Muscle Use Cardiovascular: Present: Regular Rate and Rhythm, Normal S1, S2. No: Murmurs Abdomen: Present: Normal Bowel Sounds. No: Tenderness, Distention, Peritoneal Signs Back: Present: Normal Inspection Upper Extremity: Present: Normal Inspection. No: Cyanosis, Edema Lower Extremity: Present: Other (cellulitis at dorsal aspect of right foot). No : Edema Neurological: Present: GCS=15, CN II-XII Intact, Speech Normal Skin: Present: Warm, Dry, Normal Color, Other (Cellulitis at dorsal aspect to right foot). No: Rashes Psychiatric: Present: Alert, Oriented x 3, Normal Insight, Normal Concentration Medical Decision Making ED Course and Treatment: 11/26/17 14:40 Impression: 37 year old male presents to the Emergency department for itchiness of right 4th toe. Differential Diagnosis included but are not limited to: cellulitis Plan: -- Reassess and disposition Progress Notes: - Scribe Statement The provider has reviewed the documentation as recorded by the Scribe Gladys Vela. All medical record entries made by the Scribe were at my direction and personally dictated by me. I have reviewed the chart and agree that the record accurately reflects my personal performance of the history, physical exam, medical decision making, and the department course for this patient. I have also personally directed, reviewed, and agree with the discharge instructions and disposition. Disposition/Present on Arrival - Present on Arrival Any Indicators Present on Arrival: No History of DVT/PE: No History of Uncontrolled Diabetes: No Urinary Catheter: No History of Decub. Ulcer: No History Surgical Site Infection Following: None - Disposition Have Diagnosis and Disposition been Completed?: Yes Diagnosis: Cellulitis Disposition: HOME/ ROUTINE Disposition Time: 14:35 Condition: GOOD Discharge Instructions (ExitCare): Cellulitis (ED) Additional Instructions: Thank you for letting us take care of you today. The emergency medical care you received today was directed at your acute symptoms. If you were prescribed any medication, please fill it and take as directed. It may take several days for your symptoms to resolve. Return to the Emergency Department if your symptoms worsen, do not improve, or if you have any other problems. Please contact your doctor or call one of the physicians/clinics you have been referred to that are listed on the Patient Visit Information form that is included in your discharge packet. Bring any paperwork you were given at discharge with you along with any medications you are taking to your follow up visit. Our treatment cannot replace ongoing medical care by a primary care provider (PCP) outside of the emergency department. Thank you for allowing the [facility] team to be part of your care today. Follow up with your primary care doctor next week for re-evaluation and further management. Prescriptions: Amoxicillin/Clavulanate [Augmentin 875 MG-125 MG] 1 tab PO BID #14 tab Referrals: [facility] Roxann Yan, [Non-Staff] - Follow up with primary Forms: Doctor [employer] (Nigerien)
== END 2017-11-26 15:00 | disposition home or self-care (01) ==
LOC: ED 14:13
DX: L03.115 Cellulitis of right lower limb (principal)

== ENCOUNTER 2017-11-27 11:29 | Emergency (ER) | payer OTHER ==
[2017-11-27 11:33] VITALS: BMI 34.2
[2017-11-27 11:40] VITALS: BP 127/85; PULSE 87; RESP 18; TEMP 97.8; O2SAT 96
--- NOTE | 2017-11-27 12:04 | ED PDOC ---
Arrival/HPI - General Chief Complaint: Lower Extremity Problem/Injury Time Seen by Provider: 11/27/17 11:45 Historian: Patient - History of Present Illness Narrative History of Present Illness (Text): 11/27/17 12:00 37 year old male, with past medical history of hypertension, seizure and diabetes, presents to the Emergency department complaining of discomfort to his right 4th toe after he was seen and treated in the ED 11/26/17. Patient states that he keeps getting his toe wet and worries that it will get infected. Patient denies any drainage or swelling. Patient denies any fever, chills, nausea, vomiting, diarrhea, abdominal pain, chest pain, shortness of breath or any other complaints. PMD: Dr. Jasapl Brooks Time/Duration: Prior to Arrival Symptom Onset: Gradual Symptom Course: Unchanged Quality: Unable to Describe Severity Level: 1 Activities at Onset: Rest Context: Home Past Medical History - Provider Review Nursing Documentation Reviewed: Yes - Travel History Have you recently traveled outside [place] w/in the past 3 mons?: No - Infectious Disease Hx of Infectious Diseases: None - Tetanus Immunization Tetanus Immunization: Up to Date - Cardiac Hx Cardiac Disorders: Yes Hx Hypertension: Yes - Pulmonary Hx Respiratory Disorders: No Hx Tuberculosis: No - Neurological Hx Neurological Disorder: Yes HX Cerebrovascular Accident: No Hx Seizures: Yes - HEENT Hx HEENT Disorder: No - Renal Hx Renal Disorder: No - Endocrine/Metabolic Hx Endocrine Disorders: Yes Hx Diabetes Mellitus Type 2: Yes - Hematological/Oncological Hx Blood Disorders: No Hx Cancer: No - Integumentary Hx Dermatological Disorder: No - Musculoskeletal/Rheumatological Hx Musculoskeletal Disorders: No - Gastrointestinal Hx Gastrointestinal Disorders: No - Genitourinary/Gynecological Hx Genitourinary Disorders: No Hx Sexually Transmitted Diseases: No - Psychiatric Hx Anxiety: Yes Hx Bipolar Disorder: Yes Hx Depression: Yes Hx Schizophrenia: Yes Hx Substance Use: No - Past Surgical History Past Surgical History: Unable to Obtain - Anesthesia Hx Anesthesia: Yes Hx Anesthesia Reactions: No Hx Malignant Hyperthermia: No - Suicidal Assessment Feels Threatened In Home Enviroment: No Family/Social History - Physician Review Nursing Documentation Reviewed: Yes Family/Social History: Unknown Family HX Smoking Status: Former Smoker Hx Alcohol Use: No Hx Substance Use: No Hx Substance Use Treatment: No Allergies/Home Meds Allergies/Adverse Reactions: Allergies haloperidol Allergy (Mild, Verified 11/26/17 14:25) SWELLING Home Medications: Home Meds Medication Instructions Recorded Confirmed Benztropine [Cogentin] 0 mg PO DAILY 05/28/17 11/27/17 Citalopram [celeXA] 30 mg PO DAILY 05/28/17 11/27/17 Review of Systems - Review of Systems Constitutional: Normal Eyes: Normal ENT: Normal Respiratory: Normal Cardiovascular: Normal Gastrointestinal: Normal Genitourinary Male: Normal Musculoskeletal: Normal Skin: Normal, Other (Right 4th toe) Neurological: Normal Endocrine: Normal Hemo/Lymphatic: Normal Psychiatric: Normal Physical Exam Vital Signs Reviewed: Yes Vital Signs Temp Pulse Resp BP Pulse Ox 11/27/17 11:39 97.8 F 87 18 127/85 96 Temperature: Afebrile Blood Pressure: Normal Pulse: Regular Respiratory Rate: Normal Appearance: Positive for: Well-Appearing, Non-Toxic, Comfortable Pain Distress: None Mental Status: Positive for: Alert and Oriented X 3 - Systems Exam Head: Present: Atraumatic, Normocephalic Pupils: Present: PERRL Extroacular Muscles: Present: EOMI Conjunctiva: Present: Normal Mouth: Present: Moist Mucous Membranes Neck: Present: Normal Range of Motion Respiratory/Chest: Present: Clear to Auscultation, Good Air Exchange. No: Respiratory Distress, Accessory Muscle Use Cardiovascular: Present: Regular Rate and Rhythm, Normal S1, S2. No: Murmurs Abdomen: Present: Normal Bowel Sounds. No: Tenderness, Distention, Peritoneal Signs Back: Present: Normal Inspection Upper Extremity: Present: Normal Inspection. No: Cyanosis, Edema Lower Extremity: Present: Normal Inspection, NORMAL PULSES, Normal ROM, Capillary Refill < 2 s. No: Edema, CALF TENDERNESS, Cyanosis, Chica's Sign, Tenderness, Swelling, Erythema, Deformity, Temperature Abnormalties, Neurovascularly Intact, Other Neurological: Present: GCS=15, CN II-XII Intact, Speech Normal Skin: Present: Warm, Dry, Normal Color, Abrasion (Right 4th toe). No: Rashes Psychiatric: Present: Alert, Oriented x 3, Normal Insight, Normal Concentration Medical Decision Making ED Course and Treatment: 11/27/17 12:02 Impression 37 year old male, with past medical history of hypertension, seizure and diabetes, presents to the Emergency department complaining of discomfort to his right 4th toe after he was seen and treated in the ED 11/26/17. Plan assess and dispo Progress Note pt's right 4th toe was cleansed, bacitracin placed and covered with a bandage; instructed pt on how to keep wound clean and dry; Pt walking well and ambulated out of the ER w/o issue Disposition/Present on Arrival - Present on Arrival Any Indicators Present on Arrival: Yes History of DVT/PE: No History of Uncontrolled Diabetes: No Urinary Catheter: No History of Decub. Ulcer: No History Surgical Site Infection Following: None - Disposition Have Diagnosis and Disposition been Completed?: Yes Diagnosis: Skin abrasion, Sore on toe Disposition: HOME/ ROUTINE Disposition Time: 12:05 Patient Plan: Discharge Condition: GOOD Discharge Instructions (ExitCare): Skin Abrasions (DC) Additional Instructions: Dear Danny,, Please take care of your toe by keeping the sore clean and dry. After you have a shower, dry your toe well with a clean towel, apply Bacitracin ointment, as directed, then cover with a bandage. When you shower, you can put a covering over the toe (provided) to prevent it from getting wet, but make sure to remove it after showering. If you continue to have a lot of pain along with pus and redness of the toe, return to the emergency department. Take Care, ABDI Rodrigez Referrals: [facility] Roxann Remelvi, [Non-Staff] - Follow up with primary Forms: [employer] (Armenian)
== END 2017-11-27 12:17 | disposition home or self-care (01) ==
LOC: ED 11:29
DX: S90.414A Abrasion, right lesser toe(s), initial encounter (principal); X58.XXXA Exposure to other specified factors, initial encounter; Y92.9 Unspecified place or not applicable

== ENCOUNTER 2018-01-12 18:12 | Emergency (ER) | payer OTHER ==
[2018-01-12 18:22] VITALS: RESP 18; TEMP 98.1; BMI 33.0
--- NOTE | 2018-01-12 19:07 | ED PDOC ---
Arrival/HPI - General Chief Complaint: Abnormal Skin Integrity Time Seen by Provider: 01/12/18 19:03 Historian: Patient - History of Present Illness Narrative History of Present Illness (Text): 01/12/18 19:03 pt p/w + argument with mother who brought patient to ED for further eval; pt also complains of mid abd/b/l upper thigh itching, concern for bug bites; pt states the itching is severe; pt states no fever/chills/sweats, no cp/sob/ palpitations, no abd pain, no n/v, no numbness/tingling, no urinary/bowel changes, no fall/trauma/sick contact, no travel; pt denied HI/SI, pt denied hallucinations - visual/tactile/auditory pt is here for further eval. pt's without other complaints. PCP: Dr Gutierrez Time/Duration: Prior to Arrival, Other (bug bites sensation > 2 weeks) Symptom Onset: Sudden Symptom Course: Unchanged Activities at Onset: Rest Context: Home Past Medical History - Provider Review Nursing Documentation Reviewed: Yes - Travel History Have you recently traveled outside [place] w/in the past 3 mons?: No - Past History Past History: No Previous - Infectious Disease Hx of Infectious Diseases: None - Tetanus Immunization Tetanus Immunization: Up to Date - Cardiac Hx Cardiac Disorders: Yes Hx Hypertension: Yes - Pulmonary Hx Respiratory Disorders: No Hx Tuberculosis: No - Neurological Hx Neurological Disorder: Yes HX Cerebrovascular Accident: No Hx Seizures: Yes - HEENT Hx HEENT Disorder: No - Renal Hx Renal Disorder: No - Endocrine/Metabolic Hx Endocrine Disorders: Yes Hx Diabetes Mellitus Type 2: Yes - Hematological/Oncological Hx Blood Disorders: No Hx Cancer: No - Integumentary Hx Dermatological Disorder: No - Musculoskeletal/Rheumatological Hx Musculoskeletal Disorders: No - Gastrointestinal Hx Gastrointestinal Disorders: No - Genitourinary/Gynecological Hx Genitourinary Disorders: No Hx Sexually Transmitted Diseases: No - Psychiatric Hx Anxiety: Yes Hx Bipolar Disorder: Yes Hx Depression: Yes Hx Schizophrenia: Yes Hx Substance Use: No - Past Surgical History Past Surgical History: Unable to Obtain - Anesthesia Hx Anesthesia: Yes Hx Anesthesia Reactions: No Hx Malignant Hyperthermia: No - Suicidal Assessment Feels Threatened In Home Enviroment: No Family/Social History - Physician Review Nursing Documentation Reviewed: Yes Family/Social History: No Known Family HX Smoking Status: Former Smoker Hx Alcohol Use: No Hx Substance Use: No Hx Substance Use Treatment: No Allergies/Home Meds Allergies/Adverse Reactions: Allergies haloperidol Allergy (Mild, Verified 11/26/17 14:25) SWELLING Home Medications: Home Meds Medication Instructions Recorded Confirmed Benztropine [Cogentin] 0 mg PO DAILY 05/28/17 01/12/18 Citalopram [celeXA] 30 mg PO DAILY 05/28/17 01/12/18 Review of Systems - Review of Systems Constitutional: Normal Eyes: Normal ENT: Normal Respiratory: Normal. absent: SOB Cardiovascular: Normal. absent: Chest Pain Gastrointestinal: Normal. absent: Abdominal Pain Genitourinary Male: Normal. absent: Dysuria Musculoskeletal: Normal. absent: Arthralgias Skin: Normal, Pruritis. absent: Skin Lesions Neurological: Normal Endocrine: Normal Hemo/Lymphatic: Normal Psychiatric: Normal. absent: Anxiety, Depression, Suicidal Ideation Physical Exam Vital Signs Reviewed: Yes Vital Signs Temp Pulse Resp BP Pulse Ox 01/12/18 18:21 98.1 F 81 18 133/88 99 Temperature: Afebrile Blood Pressure: Normal Pulse: Regular Respiratory Rate: Normal Appearance: Positive for: Well-Appearing, Non-Toxic, Uncomfortable, Other (alert /awake, GCS = 15, oriented x 3, NAD, mildly uncomfortable, slightly anxious with mild flat affect, resting in bed, cooperative) Pain Distress: None Mental Status: Positive for: Alert and Oriented X 3 - Systems Exam Head: Present: Atraumatic, Normocephalic Pupils: Present: PERRL, Other (no nystagmus, no photophobia, sclera anicteric, visual field intact b/l) Extroacular Muscles: Present: EOMI Conjunctiva: Present: Normal Ears: Present: Normal Mouth: Present: Moist Mucous Membranes, Other (fair dentitions, no drooling/ stridor, no exudate/lesions, uvula/tongue are midline) Pharnyx: Present: Normal Nose (External): Present: Atraumatic Nose (Internal): Present: Normal Inspection. No: No Active Bleeding Neck: Present: Normal Range of Motion, Trachea Midline, Other (intact ROM, no midline tenderness, no nuchal rigidity, no step off). No: Meningeal Signs, MIDLINE TENDERNESS, Paraspinal Tenderness Respiratory/Chest: Present: Clear to Auscultation, Good Air Exchange, Other ( CTA b/l, no w/r/r, no accessory muscle use noted, no tachypenia). No: Respiratory Distress, Accessory Muscle Use, Wheezes Cardiovascular: Present: Regular Rate and Rhythm, Normal S1, S2. No: Murmurs Abdomen: Present: Normal Bowel Sounds, Other (well nourished/obese male, no focal tenderness, no masses/rebound/guarding/rigidity, no blanchard's sign, no mcburney's point tenderness). No: Tenderness, Distention Back: Present: Normal Inspection. No: CVA Tenderness, Midline Tenderness, Paraspinal Tenderness Upper Extremity: Present: Normal Inspection, Normal ROM, NORMAL PULSES, Neurovascularly Intact, Capillary Refill < 2s. No: Deformity Lower Extremity: Present: Normal Inspection, NORMAL PULSES, Normal ROM, Neurovascularly Intact. No: Edema, Chica's Sign, Deformity, Capillary Refill < 2 s Neurological: Present: GCS=15, CN II-XII Intact, Speech Normal Skin: Present: Warm, Dry, Normal Color, Other (cap refill < 1sec, no ulcerations , no lesions, no petechiae, no rashes noted; sporadic lower abd old oval shaped rashes noted, no erythematous skin/non-indurated, no vesicles/pustules/bullae; NO NIKOSKY's sign) Psychiatric: Present: Alert, Oriented x 3, Normal Insight, Normal Concentration , Anxious. No: Suicidal Ideation, Homicidal Ideation Medical Decision Making ED Course and Treatment: 01/12/18 19:00 Impression: body itching, had an argument with mother i have consider all the differential diagnosis regarding pt's chief medical complaints/clinical findings, including but are not limited to: body itching/ had an argument with mother A/P: body itching, had an argument with mother - labs - crisis counselor - supportive care - observe/reevaluation 01/12/18 20:31 PT IS MEDICALLY CLEARED FOR PSYCH/CRISIS EVAL 01/12/18 20:45 PES/crisis counselor at bedside, evaluated patient, pt is cleared from psych, pt can be released home for continued outpt evaluation/mgt/txt pt is doing well currently pt is made aware of his medical results pt is encouraged outpt f/u pt will be discharged home Re-evaluation Time: 20:31 Reassessment Condition: Improving,but remains with symptoms - Lab Interpretations Lab Results: 01/12/18 19:20 01/12/18 19:20 Lab Results 01/12/18 19:20: Alcohol, Quantitative < 10 01/12/18 19:20: Salicylates < 1 L, Acetaminophen < 10.0 L 01/12/18 19:20: Urine Opiates Screen Negative, Urine Methadone Screen Negative, Ur Barbiturates Screen Negative, Ur Phencyclidine Scrn Negative, Ur Amphetamines Screen Negative, U Benzodiazepines Scrn Negative, U Oth Cocaine Metabols Negative, U Cannabinoids Screen Negative 01/12/18 19:20: Sodium 145, Potassium 3.5 L, Chloride 107, Carbon Dioxide 27, Anion Gap 15, BUN 15, Creatinine 0.8, Est GFR ( Amer) > 60, Est GFR (Non- Af Amer) > 60, Random Glucose 104, Calcium 8.8, Magnesium 2.2, Total Bilirubin 0.2, AST 33, ALT 57 H, Alkaline Phosphatase 69, Total Protein 7.0, Albumin 4.0, Globulin 3.0, Albumin/Globulin Ratio 1.3 01/12/18 19:20: Urine Color Yellow, Urine Appearance Clear, Urine pH 6.5, Ur Specific [place] 1.025, Urine Protein Negative, Urine Glucose (UA) Negative, Urine Ketones Trace H, Urine Blood Negative, Urine Nitrate Negative, Urine Bilirubin Negative, Urine Urobilinogen 0.2, Ur Leukocyte Esterase Negative 01/12/18 19:20: WBC 4.3 L, RBC 4.11, Hgb 12.9 L, Hct 36.8 L, MCV 89.5, MCH 31.4 , MCHC 35.1, RDW 12.5, Plt Count 152, MPV 11.1 H, Gran % 55.7, Lymph % (Auto) 34.9, [place] % (Auto) 7.7 H, Eos % (Auto) 1.2 L, Baso % (Auto) 0.5, Gran # 2.38, Lymph # (Auto) 1.5, [place] # (Auto) 0.3, Eos # (Auto) 0.1, Baso # (Auto) 0.02 I have reviewed the lab results: Yes Interpretation: All labs normal - Medication Orders Current Medication Orders: Discontinued Medications Diphenhydramine HCl (Benadryl) 25 mg PO ONCE ONE Stop: 01/12/18 19:48 Last Admin: 01/12/18 20:15 Dose: 25 mg Disposition/Present on Arrival - Present on Arrival Any Indicators Present on Arrival: No History of DVT/PE: No History of Uncontrolled Diabetes: No Urinary Catheter: No History of Decub. Ulcer: No History Surgical Site Infection Following: None - Disposition Have Diagnosis and Disposition been Completed?: Yes Diagnosis: Schizophrenia, Bipolar disorder, General medical exam Disposition: HOME/ ROUTINE Disposition Time: 20:51 Patient Plan: Discharge Condition: STABLE Discharge Instructions (ExitCare): Schizophrenia, Bipolar Disorder Print Language: GERMAN Additional Instructions: Make sure to see your doctor in 1-2 days DRINK PLENTY OF FLUIDS take your medications as prescribed RETURN TO ED IF worse pain, cant breath, persistent vomiting, high fever >101- 102 for hours, altered behavior, slurr speech, facial changes, focal weakness ( arm/leg or both), unable to urinate, heavy/persistent bleeding, passing out, chest pain, or other medical emergencies Referrals: Sunita Gutierrez MD [Primary Care Provider] - Follow up with primary [facility] [Outside] - Follow up with primary [facility] [Outside] - Follow up with primary Forms: [employer] (Maltese)
[2018-01-12 19:33] LABS: PH,URINE 6.5 (4.7-8.0); URINE APPEARANCE CLEAR (CLEAR); URINE BILIRUBIN NEGATIVE (NEGATIVE); URINE BLOOD NEGATIVE (NEGATIVE); URINE COLOR YELLOW (YELLOW); URINE GLUCOSE (UA) NEGATIVE (NEGATIVE); URINE LEUKOCYTE ESTERASE NEGATIVE Leu/uL (NEGATIVE); URINE PROTEIN NEGATIVE mg/dL (<30 mg/dL); URINE UROBILINOGEN 0.2 E.U./dL (<1 E.U./dL)
[2018-01-12 19:35] LABS: BASO # 0.02 K/mm3 (0.0-2.0); BASO % 0.5 % (0.0-3.0); EOS # 0.1 (0.0-0.7); EOS % 1.2 % (1.5-5.0); GRAN # 2.38 (1.4-6.5); GRAN % 55.7 % (50.0-68.0); HEMOGLOBIN 12.9 g/dL (14.0-18.0); LYMPH # 1.5 (1.2-3.4); LYMPH % 34.9 % (22.0-35.0); MEAN CELL VOLUME 89.5 fl (80.0-105.0); MEAN CORPUSCULAR HEMOGLOBIN 31.4 pg (25.0-35.0); MEAN CORPUSCULAR HGB CONC 35.1 g/dl (31.0-37.0); MEAN PLATELET VOLUME 11.1 fl (7.0-11.0); MONO # 0.3 (0.1-0.6); MONO % 7.7 % (1.0-6.0); RBC 4.11 10^6/uL (3.5-6.1); RED CELL DISTRIBUTION WIDTH 12.5 % (11.5-14.5); WHITE BLOOD COUNT 4.3 10^3/ul (4.5-11.0)
[2018-01-12 19:47] LABS: ACETAMINOPHEN < 10.0 ug/ml (10.0-20.0); SALICYLATE < 1 mg/dL (2.0-20.0)
[2018-01-12 19:48] LABS: ALB/GLOB RATIO 1.3 (1.1-1.8); ALT/SGPT 57 U/L (7-56); AST/SGOT 33 U/L (17-59); BLOOD UREA NITROGEN 15 mg/dL (7-21); CALCIUM 8.8 mg/dL (8.4-10.5); GFR AFRICAN-AMERICAN > 60; GFR NON-AFRICAN AMERICAN > 60
[2018-01-12 19:57] LABS: BARBITURATES, UR NEGATIVE (NEGATIVE)
[2018-01-12 20:12] LABS: BENZODIAZEPINES, UR NEGATIVE (NEGATIVE); OPIATES, UR NEGATIVE (NEGATIVE); PHENCYCLIDINE, UR NEGATIVE (NEGATIVE)
[2018-01-13 01:25] VITALS: BP 140/72; PULSE 75; O2SAT 100
== END 2018-01-12 20:30 | disposition home or self-care (01) ==
LOC: ED 18:12
DX: Z00.00 Encounter for general adult medical examination without abnormal findings (principal); F20.9 Schizophrenia, unspecified; F31.9 Bipolar disorder, unspecified; E11.9 Type 2 diabetes mellitus without complications; I10 Essential (primary) hypertension; Z87.891 Personal history of nicotine dependence

== ENCOUNTER 2018-01-13 13:42 | Emergency (ER) | payer OTHER ==
[2018-01-13 13:48] VITALS: BMI 32.1
[2018-01-13 13:58] VITALS: O2SAT 98
--- NOTE | 2018-01-13 14:47 | ED PDOC ---
Arrival/HPI - General Chief Complaint: Abnormal Skin Integrity Time Seen by Provider: 01/13/18 14:41 Historian: Patient - History of Present Illness Narrative History of Present Illness (Text): 01/13/18 14:44 Danny Mcclain is a 37 year old male roxanna to the emergency department for evaluation after argument with mother who states that patient's house has bed bugs. On a side note, Patient is complaining of depression because he is bored and feels like he has nothing to do with his life. Patient confirms that he is compliant with his mediations. Patient denies any suicidal ideation, homicidal ideation, or any other complaints at this time. Patient is not a smoker. Time/Duration: 1-3 hours Symptom Onset: Gradual Symptom Course: Unchanged Context: Home Past Medical History - Provider Review Nursing Documentation Reviewed: Yes - Past History Past History: No Previous - Infectious Disease Hx of Infectious Diseases: None - Tetanus Immunization Tetanus Immunization: Up to Date - Cardiac Hx Cardiac Disorders: Yes Hx Hypertension: Yes - Pulmonary Hx Respiratory Disorders: No Hx Tuberculosis: No - Neurological Hx Neurological Disorder: Yes HX Cerebrovascular Accident: No Hx Seizures: Yes - HEENT Hx HEENT Disorder: No - Renal Hx Renal Disorder: No - Endocrine/Metabolic Hx Endocrine Disorders: Yes Hx Diabetes Mellitus Type 2: Yes - Hematological/Oncological Hx Blood Disorders: No Hx Cancer: No - Integumentary Hx Dermatological Disorder: No - Musculoskeletal/Rheumatological Hx Musculoskeletal Disorders: No - Gastrointestinal Hx Gastrointestinal Disorders: No - Genitourinary/Gynecological Hx Genitourinary Disorders: No Hx Sexually Transmitted Diseases: No - Psychiatric Hx Anxiety: Yes Hx Bipolar Disorder: Yes Hx Depression: Yes Hx Schizophrenia: Yes Hx Substance Use: No - Past Surgical History Past Surgical History: Unable to Obtain - Anesthesia Hx Anesthesia: Yes Hx Anesthesia Reactions: No Hx Malignant Hyperthermia: No - Suicidal Assessment Feels Threatened In Home Enviroment: No Family/Social History - Physician Review Nursing Documentation Reviewed: Yes Family/Social History: No Known Family HX Smoking Status: Former Smoker Hx Alcohol Use: No Hx Substance Use: No Hx Substance Use Treatment: No Allergies/Home Meds Allergies/Adverse Reactions: Allergies haloperidol Allergy (Mild, Verified 11/26/17 14:25) SWELLING Home Medications: Home Meds Medication Instructions Recorded Confirmed Benztropine [Cogentin] 0 mg PO DAILY 05/28/17 01/12/18 Citalopram [celeXA] 30 mg PO DAILY 05/28/17 01/12/18 Review of Systems - Physician Review All systems were reviewed & negative as marked: Yes - Review of Systems Constitutional: absent: Fevers, Night Sweats Eyes: absent: Vision Changes ENT: absent: Hearing Changes Respiratory: absent: SOB, Cough Cardiovascular: absent: Chest Pain Gastrointestinal: absent: Abdominal Pain Genitourinary Male: absent: Dysuria Musculoskeletal: absent: Arthralgias Skin: absent: Rash, Pruritis Neurological: absent: Headache, Dizziness Endocrine: absent: Diaphoresis Hemo/Lymphatic: absent: Adenopathy Psychiatric: Depression. absent: Suicidal Ideation Physical Exam Vital Signs Reviewed: Yes Vital Signs Temp Pulse Resp BP Pulse Ox 01/13/18 17:43 98.2 F 79 18 124/72 98 01/13/18 13:42 98.7 F 80 16 118/79 98 Temperature: Afebrile Blood Pressure: Normal Pulse: Regular Respiratory Rate: Normal Appearance: Positive for: Well-Appearing, Non-Toxic, Comfortable Pain Distress: None Mental Status: Positive for: Alert and Oriented X 3 - Systems Exam Head: Present: Atraumatic, Normocephalic Pupils: Present: PERRL Extroacular Muscles: Present: EOMI Conjunctiva: Present: Normal Mouth: Present: Moist Mucous Membranes Neck: Present: Normal Range of Motion Respiratory/Chest: Present: Clear to Auscultation, Good Air Exchange. No: Respiratory Distress, Accessory Muscle Use Cardiovascular: Present: Regular Rate and Rhythm, Normal S1, S2. No: Murmurs Abdomen: No: Tenderness, Distention, Peritoneal Signs Back: Present: Normal Inspection Upper Extremity: Present: Normal Inspection. No: Cyanosis, Edema Lower Extremity: Present: Normal Inspection. No: Edema Neurological: Present: GCS=15, CN II-XII Intact, Speech Normal Skin: Present: Warm, Dry, Normal Color. No: Rashes Psychiatric: Present: Alert, Oriented x 3, Normal Insight, Normal Concentration Medical Decision Making ED Course and Treatment: 01/13/18 15:45 Patient is nontoxic well-appearing in no distress vital signs are stable. pt without any rash or signs of insect bites. CBC WNL CMP WNL Tylenol WNL Salicylate WNL Alcohol level WNL Urine drug screen wnl UA; wnl ekg normal sinus rhythm at 80 bpm normal axis normal intervals no ST elevations pt is medically cleared for PES evaluation Patient was seen and evaluated by PES screener: sarath All results discussed in depth with the patient. Advised follow-up with the PMD and his psychiatrist. He advised me to return if symptoms worsen persist or if new concerning symptoms develop Impression; depression, concern for bug bites Follow up with the primary care physician within the next 2 days. Followup with behavioral health Center return if symptoms worsen,persist or if new symptoms develop. - Lab Interpretations Lab Results: 01/13/18 15:36 01/13/18 15:36 Lab Results 01/13/18 15:36: Alcohol, Quantitative < 10 01/13/18 15:36: Salicylates < 1 L, Acetaminophen < 10.0 L 01/13/18 15:36: Urine Opiates Screen Negative, Urine Methadone Screen Negative, Ur Barbiturates Screen Negative, Ur Phencyclidine Scrn Negative, Ur Amphetamines Screen Negative, U Benzodiazepines Scrn Negative, U Oth Cocaine Metabols Negative, U Cannabinoids Screen Negative 01/13/18 15:36: Sodium 146, Potassium 4.0, Chloride 110 H, Carbon Dioxide 26, Anion Gap 14, BUN 18, Creatinine 0.9, Est GFR ( Amer) > 60, Est GFR (Non- Af Amer) > 60, Random Glucose 84, Calcium 9.0, Total Bilirubin 0.2, AST 34, ALT 56, Alkaline Phosphatase 76, Total Protein 7.3, Albumin 4.1, Globulin 3.2, Albumin/Globulin Ratio 1.3 01/13/18 15:36: Urine Color Yellow, Urine Appearance Clear, Urine pH 8.5, Ur Specific [place] 1.020, Urine Protein Negative, Urine Glucose (UA) Negative, Urine Ketones Trace H, Urine Blood Negative, Urine Nitrate Negative, Urine Bilirubin Negative, Urine Urobilinogen 0.2, Ur Leukocyte Esterase Negative 01/13/18 15:36: WBC 4.1 L, RBC 4.29, Hgb 13.3 L, Hct 38.7 L, MCV 90.2, MCH 31.0 , MCHC 34.4, RDW 12.4, Plt Count 148, MPV 10.8, Gran % 62.6, Lymph % (Auto) 28.3 , [place] % (Auto) 7.2 H, Eos % (Auto) 1.7, Baso % (Auto) 0.2, Gran # 2.59, Lymph # (Auto) 1.2, [place] # (Auto) 0.3, Eos # (Auto) 0.1, Baso # (Auto) 0.01 - Scribe Statement The provider has reviewed the documentation as recorded by the Scribe Daniela Molina Provider Scribe Attestation: All medical record entries made by the Scribe were at my direction and personally dictated by me. I have reviewed the chart and agree that the record accurately reflects my personal performance of the history, physical exam, medical decision making, and the department course for this patient. I have also personally directed, reviewed, and agree with the discharge instructions and disposition. Disposition/Present on Arrival - Present on Arrival Any Indicators Present on Arrival: No History of DVT/PE: No History of Uncontrolled Diabetes: No Urinary Catheter: No History of Decub. Ulcer: No History Surgical Site Infection Following: None - Disposition Have Diagnosis and Disposition been Completed?: Yes Diagnosis: General medical exam, Depression Disposition: HOME/ ROUTINE Disposition Time: 18:55 Patient Plan: Discharge Condition: GOOD Additional Instructions: Follow up with the primary care physician within the next 2 days. Followup with behavioral health Center return if symptoms worsen,persist or if new symptoms develop. Referrals: Sunita Gutierrez MD [Primary Care Provider] - [place] up [place] [facility] [place] - Follow up with primary [facility] [Outside] - Follow up with primary Forms: [facility] ([place])
[2018-01-13 15:44] LABS: BASO # 0.01 K/mm3 (0.0-2.0); BASO % 0.2 % (0.0-3.0); EOS # 0.1 (0.0-0.7); EOS % 1.7 % (1.5-5.0); GRAN # 2.59 (1.4-6.5); GRAN % 62.6 % (50.0-68.0); HEMOGLOBIN 13.3 g/dL (14.0-18.0); LYMPH # 1.2 (1.2-3.4); LYMPH % 28.3 % (22.0-35.0); MEAN CELL VOLUME 90.2 fl (80.0-105.0); MEAN CORPUSCULAR HGB CONC 34.4 g/dl (31.0-37.0); MEAN PLATELET VOLUME 10.8 fl (7.0-11.0); MONO # 0.3 (0.1-0.6); MONO % 7.2 % (1.0-6.0); RBC 4.29 10^6/uL (3.5-6.1); RED CELL DISTRIBUTION WIDTH 12.4 % (11.5-14.5); WHITE BLOOD COUNT 4.1 10^3/ul (4.5-11.0)
[2018-01-13 15:48] LABS: PH,URINE 8.5 (4.7-8.0); URINE BILIRUBIN NEGATIVE (NEGATIVE); URINE BLOOD NEGATIVE (NEGATIVE); URINE GLUCOSE (UA) NEGATIVE (NEGATIVE); URINE LEUKOCYTE ESTERASE NEGATIVE Leu/uL (NEGATIVE); URINE PROTEIN NEGATIVE mg/dL (<30 mg/dL); URINE UROBILINOGEN 0.2 E.U./dL (<1 E.U./dL)
[2018-01-13 15:54] LABS: ALB/GLOB RATIO 1.3 (1.1-1.8); ALBUMIN 4.1 g/dL (3.0-4.8); ALT/SGPT 56 U/L (7-56); AST/SGOT 34 U/L (17-59); BLOOD UREA NITROGEN 18 mg/dL (7-21); GFR AFRICAN-AMERICAN > 60; GFR NON-AFRICAN AMERICAN > 60
[2018-01-13 15:58] LABS: ACETAMINOPHEN < 10.0 ug/ml (10.0-20.0); SALICYLATE < 1 mg/dL (2.0-20.0)
[2018-01-13 16:09] LABS: URINE APPEARANCE CLEAR (CLEAR); URINE COLOR YELLOW (YELLOW)
[2018-01-13 16:17] LABS: BARBITURATES, UR NEGATIVE (NEGATIVE); BENZODIAZEPINES, UR NEGATIVE (NEGATIVE); OPIATES, UR NEGATIVE (NEGATIVE); PHENCYCLIDINE, UR NEGATIVE (NEGATIVE)
[2018-01-13 17:44] VITALS: RESP 18; TEMP 98.2
[2018-01-13 19:10] VITALS: BP 124/78; PULSE 86
--- NOTE | 2018-01-14 09:39 | CARD ---
APPROVED REPORT EKG Measurement Heart [id number] <Conclusion> Normal sinus rhythm NSSTW changes
== END 2018-01-13 19:10 | disposition home or self-care (01) ==
LOC: ED 13:42
DX: Z00.00 Encounter for general adult medical examination without abnormal findings (principal); F31.9 Bipolar disorder, unspecified; E11.9 Type 2 diabetes mellitus without complications; I10 Essential (primary) hypertension; F20.9 Schizophrenia, unspecified; Z87.891 Personal history of nicotine dependence